=== PATIENT | female | born 1950 | race Caucasian/White ===

== ENCOUNTER 2017-06-23 09:22 | Outpatient (CLI) | payer BC ==
--- NOTE | 2017-06-23 11:07 | RAD ---
TWO VIEWS LUMBAR SPINE: Date: 06-23-17 Comparison: 05-02-13 History: Low back pain. Prior lumbar spine surgery. FINDINGS: Pedicle screws are present at L4, L5, and S1 bilaterally with vertically oriented interlocking rods. Disc device noted at L4-5 and L5-S1. No significant anterolisthesis or retrolisthesis. Bilateral la minectomy changes are noted at the post-operative site. There is atherosclerotic calcification of th e abdominal aorta. There is lower lumbar spine facet hypertrophy. IMPRESSION: Post-operative changes as above. No acute osseous abnormality. POS: [facility]
== END 2017-06-23 09:23 | disposition home or self-care (01) ==
LOC: TBSIIMAG 09:22
PROVIDERS: ATTEND Neurological Surgery
DX: M54.16 Radiculopathy, lumbar region (principal); Z98.890 Other specified postprocedural states
CPT/HCPCS: 72100

== ENCOUNTER 2017-08-01 12:19 | Observation (INO) | payer BC, MEDICARE ==
[2017-08-01 13:35] LABS: #Eosinphils 0.1 thou/uL (0.0-0.7); #Lymphocytes 0.5 thou/uL (1.20-3.40); #Monocytes 0.6 thou/uL (0.11-0.59); #Neutrophils 12.3 thou/uL (1.40-6.50); %Basophils 0.2 % (0.0-1.0); %Eosinophils 0.4 % (0.0-10.0); %Lymphocytes 3.9 % (21.0-51.0); %Monocytes 4.5 % (0.0-10.0); Hematocrit 43.5 % (36.0-47.0); Mean Platelet Volume 6.3 fL (7.4-10.4); Red Blood Cell (RBC) Count 4.69 mill/uL (4.20-5.40); White Blood Cell (WBC) Count 13.5 thou/uL (4.8-10.8)
[2017-08-01 13:44] LABS: Bilirubin Small (Negative); Blood, Urine Negative (Negative); Glucose, Urine (Dipstick) Negative (Negative); Ketone, Urine Negative (Negative); Nitrite Negative (Negative); Protein, Urine (Dipstick) 100 mg/dL (Neg-Trace); Urobilinogen 0.2 mg/dL (0.2-1.0)
[2017-08-01 13:45] LABS: Bacteria/HPF None Seen HPF (None Seen); Hyaline Casts/LPF 4-6 HYALINE CAST LPF (0-3 Hyaline)
[2017-08-01 13:58] LABS: Lactic Acid - Sepsis 1.7 mmol/L (0.5-2.2)
[2017-08-01 14:02] LABS: ALT (SGPT) 12 U/L (8-55); AST (SGOT) 13 U/L (5-34); Alkaline Phosphatase 148 U/L (40-150); Anion Gap 12 mmol/L (10-20); BUN (Urea Nitrogen) 23 mg/dL (9.8-20.1); Bilirubin, Total 0.8 mg/dL (0.2-1.2); Calc. Creatinine Clearance 0 mL/min (70-130); Calcium 9.1 mg/dL (7.8-10.44); Carbon Dioxide 20 mmol/L (23-31); Chloride 113 mmol/L (98-107); Estimated GFR-MDRD 45; Globulin 3.1 g/dL (2.4-3.5); Lipase 20 U/L (8-78); Protein, Total 7.1 g/dL (6.0-8.3)
[2017-08-01 14:04] LABS: Troponin I Less than 0.010 ng/mL (< 0.028)
[2017-08-01] MEDS ORDERED: Ondansetron HCl/PF 4 MG/2 ML Vial ONE (14:14)
[2017-08-01] MEDS ORDERED: Ondansetron ODT 4 MG TAB PO PRN (15:47)
[2017-08-01] MEDS ORDERED: Zolpidem Tartrate 5 MG TAB PO PRN (15:47)
[2017-08-01] MEDS ORDERED: Eucerin (Mineral Oil/Petrolatum,White) 30 gm Jar TOP PRN (15:47)
[2017-08-01] MEDS ORDERED: Ondansetron HCl/PF 4 MG/2 ML Vial IVP PRN (15:47)
[2017-08-01] MEDS ORDERED: HYDROcodone/Acetaminophen 5/325 mg Tablet PO PRN (15:47)
[2017-08-01] MEDS ORDERED: Mag-Al 1200 mg/1200 mg/30 ML UDCUP PO PRN (15:47)
[2017-08-01] MEDS ORDERED: Loperamide HCl 2 MG CAP PO PRN (15:47)
[2017-08-01] MEDS ORDERED: Loratadine 10 MG TAB PO PRN (15:47)
[2017-08-01] MEDS ORDERED: hydrALAZINE 20 MG/ML VIAL SLOW IVP PRN (15:47)
[2017-08-01] MEDS ORDERED: Artificial Tears 18 DROP/0.9 ML EA EYE PRN (15:47)
[2017-08-01] MEDS ORDERED: Sodium Chloride 0.65% Nasal 44 ML BOT EA NARE PRN (15:47)
[2017-08-01] MEDS ORDERED: Diabetic Tussin 200 MG/10 ML UDCUP PO PRN (15:47)
[2017-08-01] MEDS ORDERED: Chloraseptic Spray 180 ml Bottle PO PRN (15:47)
[2017-08-01] MEDS ORDERED: metroNIDAZOLE 500 MG/100 ML BAG ONE (15:53)
--- NOTE | 2017-08-01 16:17 | HP ---
PRIMARY CARE PHYSICIAN: Magi Denton M.D. REASON FOR ADMISSION: Gastroenteritis, dehydration and near syncope. HISTORY OF PRESENT ILLNESS: A 67-year-old female with a history of hypertension and dyslipidemia, wh o came to the emergency room with complaint of nausea, vomiting, and diarrhea. The patient reports t hat this morning around 5:00 a.m., she started having nausea, vomiting, and diarrhea. So far, she irby d 8 times diarrhea and 3 times of vomiting at home. Each time, the patient was having liquidy bowel movement without any pus or blood associated with nausea and three times vomiting containing of food particle. The patient was also having crampy abdominal pain. She was feeling cold, dizzy, and weak. The patient was in bathroom around 10 a.m. At that time, the patient felt lightheaded and about to pass out, but she slowly with the support of a wall sat down on the floor because she was not able t o keep herself up. She did not have any chest pain, palpitation or shortness of breath. Her near sy ncopal episode was witnessed by a pill machine operator. The patient was feeling very weak, dizzy associated wit h nausea, vomiting, and diarrhea, and that is why the patient was brought to the emergency room today . In the emergency room, the patient was relatively normotensive, but routine blood tests showed elevat ed BUN and creatinine. The patient clinically appeared dehydrated and weak. The patient reports that on she had family member came from [place]. They very sick wit h similar type of illness, but they got better over the weekend, but they stayed with the patient's h ome. The patient ate pizza, but other family member also ate similar pizza, nobody got sick. The pat ient only the family member got this type of illness. No other has similar type of problem. The patient denies any other sick exposures. She denies any travel. She denies any chest pain or pa lpitation. She denies any urinary tract infection symptoms. ALLERGIES: ADHESIVE TAPE, CHLORHEXIDINE, otherwise no known drug allergies. CURRENT MEDICATIONS: Benazepril 20 mg twice daily, vitamin D3 1000 units p.o. daily, pravastatin 40 mg p.o. daily, folic acid 1 mg p.o. daily, Vagifem vaginal application twice weekly, Restasis ophthal brody drops as needed, Tylenol No. 3 one or two tablets q.6 hourly p.r.n. REVIEW OF SYSTEMS: The following complete review of systems was negative, unless otherwise mentioned in the HPI or below: Constitutional: Weight loss or gain, ability to conduct usual activities. Sk in: Rash, itching. Eyes: Double vision, pain. ENT/Mouth: Nose bleeding, neck stiffness, pain, te nderness. Cardiovascular: Palpitations, dyspnea on exertion, orthopnea. Respiratory: Shortness of breath, wheezing, cough, hemoptysis, fever or night sweats. Gastrointestinal: Poor appetite, abdom inal pain, heartburn, nausea, vomiting, constipation, or diarrhea. Genitourinary: Urgency, frequenc y, dysuria, nocturia. Musculoskeletal: Pain, swelling. Neurologic/Psychiatric: Anxiety, depression . Allergy/Immunologic: Skin rash, bleeding tendency. Please see my HPI for pertinent positives and negatives. All other review of systems reviewed and negative except as mentioned in the HPI. PAST MEDICAL HISTORY: Hypertension, dyslipidemia, rheumatoid arthritis, chronic kidney disease stage 2. PAST SURGICAL HISTORY: Hysterectomy, tonsillectomy, lumbar L4-L5 fusion. PAST PSYCHIATRIC HISTORY: Reviewed and negative. SOCIAL HISTORY: The patient is . Her is present at bedside. She drinks alcohol soci ally and occasionally. She denies any smoking. She denies any other illicit drug abuse. FAMILY HISTORY: No strong family history of premature coronary artery disease, stroke or cancer. EMERGENCY ROOM COURSE: The patient has received IV fluid, Flagyl, and Zofran 4 mg. PHYSICAL EXAMINATION: VITAL SIGNS: On arrival, blood pressure 122/92, pulse 75, respiratory rate 16, saturation 95% on sheila m air, temperature 97.5, weight 79.3 kilograms. GENERAL: The patient is currently alert, awake, appears weak and dehydrated. No obvious acute distr ess. HEENT: Normocephalic, atraumatic. Eyes: Pupils round, reactive to light. Extraocular muscles inta ct. ENT: Oropharynx within normal limits. Dry appearing mucous membranes. No oral lesions. No pharyng eal erythema, no exudate. NECK: Supple. Range of motion is normal. No meningeal signs of irritation, no JVD, no thyromegaly, no carotid bruit. LUNGS: Clear to auscultation without any rhonchi or rales. CARDIAC: S1, S2 regular without any murmur. ABDOMEN: The patient does have vague abdominal discomfort, but no peritoneal sign, no guarding, no r igidity, no rebound, no organomegaly, no peritoneal sign. Bowel sounds present. No distention. EXTREMITIES: Upper extremity passive movement of all joints is normal. Lower extremity, no edema. Good peripheral pulsation. SKIN: No skin rash. HEMATOLOGICAL: No lymphadenopathy. PSYCHIATRIC: Normal affect. SIGNIFICANT LABS: EKG based on my review reveals normal sinus rhythm within normal limits. CBC: WB C 13.5, hemoglobin 13.8, platelet 344, lactic acid 1.7. Urinalysis: Protein plus, wbc 7-10. Cardia c enzymes: CK-MB 1.5, troponin I less than 0.010. Lipase 20. BMP: Sodium 141, potassium 4.1, chl oride 113, carbon dioxide 20, anion gap 12, BUN 23, creatinine 1.20, glucose 112, calcium 9.1. LFT: Protein 7.1, albumin 4.0, alkaline phosphatase 148, AST 13, ALT 12. ASSESSMENT AND PLAN: IMPRESSION: 1. Acute gastroenteritis, presumed infectious. At this point, the patient has several liquidy bowel movements and vomiting. The patient is clinically dehydrated. The patient had sick exposure at counts include [facility] beds at the [facility], most likely viral gastroenteritis, but we will send stool for infection workup including ova and p arasite, Campylobacter antigen, and Clostridium difficile. We will also empirically start Levaquin 5 00 mg IV daily and Flagyl 500 mg intravenously q.8 hourly. We will control her pain with Benadryl p.r .n. basis. We will hydrate her with intravenous fluid and will repeat basic metabolic panel tomorrow . 2. Normal anion gap metabolic acidosis likely due to diarrhea. The patient will be given intravenou s fluid and will repeat basic metabolic panel tomorrow. 3. Dehydration. The patient is clinically dehydrated because of nausea, vomiting, and diarrhea. Th e patient will be given intravenous fluid and we will repeat basic metabolic panel tomorrow. 4. History of hypertension. We will continue the patient's blood pressure medication, benazepril if blood pressure permits, but currently blood pressure is running on lower side, so we will hold on th at blood pressure medication. 5. Dyslipidemia. We will continue pravastatin 40 mg p.o. at bedtime. 6. Vitamin D deficiency. We will continue vitamin D3 1000 units p.o. daily, folic acid 1 mg p.o. da kendell. 7. Rheumatoid arthritis. We will continue pain control with [place] or Tylenol No. 3 p.r.n. basis. 8. Near syncope, likely due to volume depletion from orthostatic hypotension. We will monitor bloo d pressure. 9. Deep venous thrombosis prophylaxis not needed because we are expecting discharge in 24 hours. 10. Gastrointestinal prophylaxis, Pepcid 20 mg IV b.i.d. 11. Code status: The patient is FULL CODE. The patient's is surrogate decision maker. Disposition plan based on clinical course, likely within 24 hours. Plan of care discussed with the p atient and her at bedside in the emergency room.
[2017-08-01] MEDS: 1/2 NS w/KCL 20 mEq 1,000 ML IV SCH (20:38)
[2017-08-01] MEDS: Acetaminophen 325 MG TAB PO PRN (20:38)
[2017-08-01] MEDS: Famotidine/PF 20 mg/2ml Vial SLOW IVP SCH (20:38)
[2017-08-01] MEDS ORDERED: Atorvastatin Calcium 10 MG TAB PO SCH (21:00)
[2017-08-01] MEDS: metroNIDAZOLE 500 MG in Premix Bag 1 BAG IVPB SCH (22:43)
[2017-08-02 02:22] VITALS: BMI 28.3
[2017-08-02] MEDS: Acetaminophen 325 MG TAB PO PRN (03:34)
[2017-08-02 04:55] LABS: #Lymphocytes 0.8 thou/uL (1.20-3.40); #Monocytes 0.5 thou/uL (0.11-0.59); #Neutrophils 5.1 thou/uL (1.40-6.50); %Basophils 0.3 % (0.0-1.0); %Eosinophils 0.2 % (0.0-10.0); %Lymphocytes 12.2 % (21.0-51.0); %Monocytes 8.1 % (0.0-10.0); Hematocrit 37.5 % (36.0-47.0); Mean Platelet Volume 6.5 fL (7.4-10.4); Red Blood Cell (RBC) Count 4.06 mill/uL (4.20-5.40); White Blood Cell (WBC) Count 6.4 thou/uL (4.8-10.8)
[2017-08-02 05:03] LABS: Anion Gap 10 mmol/L (10-20); BUN (Urea Nitrogen) 19 mg/dL (9.8-20.1); Calc. Creatinine Clearance 57 mL/min (70-130); Calcium 8.8 mg/dL (7.8-10.44); Carbon Dioxide 21 mmol/L (23-31); Chloride 109 mmol/L (98-107); Estimated GFR-MDRD 46
[2017-08-02] MEDS: metroNIDAZOLE 500 MG in Premix Bag 1 BAG IVPB SCH (05:58)
[2017-08-02] MEDS: 1/2 NS w/KCL 20 mEq 1,000 ML IV SCH ×2 (05:58→09:44)
[2017-08-02] MEDS ORDERED: Saccharomyces boulardii 250 MG CAP PO SCH (09:00)
[2017-08-02] MEDS ORDERED: FLU VACC TS2017-18 (>65YR) 0.5 ML SYRINGE IM ONE (09:00)
[2017-08-02] MEDS ORDERED: Folic Acid 1 MG TAB PO SCH (09:00)
[2017-08-02] MEDS: Famotidine/PF 20 mg/2ml Vial SLOW IVP SCH (09:45)
[2017-08-02 12:13] VITALS: BP 145/68; TEMP 98
--- NOTE | 2017-08-03 00:51 | DIS ---
DATE OF ADMISSION: 08/01/2017 DATE OF DISCHARGE: 08/02/2017 DIAGNOSES AT THE TIME OF DISCHARGE: 1. Acute viral gastroenteritis, resolved. 2. Normal anion gap metabolic acidosis, likely due to diarrhea, resolved. 3. Dehydration, resolved. 4. Chronic renal insufficiency on the top of acute, secondary to dehydration, improved. 5. History of hypertension. 6. Dyslipidemia. 7. Vitamin D deficiency. 8. Rheumatoid arthritis. HOSPITAL COURSE: The patient is a 67-year-old female with history of hypertension, dyslipi demia, who came to the emergency room with complaints of nausea, vomiting, and diarrhea. Apparently two family members she had contacted with had viral gastroenteritis, which lasted approximately 1 day and that they are both fine at this point. The patient was at home when this happened. She started feeling lightheaded and she felt like she was about to pass out. She had multiple bowel movements a nd she vomited 3 times. She felt weak and dizzy. In the emergency room, she was normotensive. She appeared to be dehydrated and weak. She was evaluated and was found to have a white count of 13.5, h emoglobin 13.8, platelet count 344. Lactic acid was 1.7. Urinalysis showed 7-10 wbc's. CK-MB was 1 .5, troponin I less than 0.010, lipase was 20. Sodium 141, potassium 4.1, chloride 113, CO2 of 20, a nion gap was 12, BUN 23, creatinine 1.2, glucose 112, AST was 13, and ALT was 12. EKG showed normal sinus rhythm with normal findings. No abnormalities. The patient got admitted to the hospital, was placed on IV fluids, on IV Flagyl and Levaquin for presumptive infectious bacterial etiology. She wa s supposed to have a stool checked for ova, parasite, Campylobacter, and Clostridium, but she did not have more bowel movements after admission, so those tests were not done. The next day, she is feeli ng significantly better. She does not have any diarrhea, no nausea, no vomiting. Her white count is down to normal range of 6.4 and her creatinine is 1.18, which is probably her baseline because she h as mild chronic renal insufficiency. She is discharged to home. DISCHARGE PHYSICAL EXAMINATION: VITAL SIGNS: Blood pressure 145/68, pulse is 63, respirations 16, temperature is 98.0, and pulse oxi metry is 98% on room air. LUNGS: Clear. HEART: S1 and S2 normal. No S3, no S4, no murmur. ABDOMEN: Soft, nontender, bowel sounds are present, no organomegaly. EXTREMITIES: No clubbing, cyanosis, or edema. DIET: The patient is going to stay on a cardiac diet. ACTIVITY: As tolerated. She will follow up with primary care physician. The patient was seen and examined before she was dis charged. The discharge time is less than 30 minutes. MEDICATIONS AT THE TIME OF DISCHARGE: Restasis 1 drop to each eye twice a day, pravastatin 40 mg at bedtime, folic acid 1 mg daily, estradiol 10 mcg vaginal tablet twice a week, cholecalciferol 1 capsu le daily, benazepril 20 mg twice a day, and acetaminophen with codeine 300 mg/30 mg of codeine 1-2 ta blets every 6-8 hours p.r.n. as needed.
== END 2017-08-02 12:35 | disposition home or self-care (01) ==
LOC: ERS 12:19 → ERHOLD 15:11 → 2SW 20:13
PROVIDERS: ADMIT Internal Medicine; ATTEND Internal Medicine
DX: A04.8 Other specified bacterial intestinal infections (principal); E87.2 Acidosis; E86.0 Dehydration; E78.5 Hyperlipidemia, unspecified; E55.9 Vitamin D deficiency, unspecified; M06.9 Rheumatoid arthritis, unspecified; I12.9 Hypertensive chronic kidney disease with stage 1 through stage 4 chronic kidney disease, or unspecified chronic kidney disease; N18.2 Chronic kidney disease, stage 2 (mild); Z88.8 Allergy status to other drugs, medicaments and biological substances; Z91.048 Other nonmedicinal substance allergy status; Z79.899 Other long term (current) drug therapy; Z90.710 Acquired absence of both cervix and uterus; Z98.890 Other specified postprocedural states; Z98.1 Arthrodesis status
CPT/HCPCS: 36415; 80048; 80053; 81003; 81015; 82553; 83605; 83690; 84484; 85025; 93005; 96361; 96365; 96366; 96367; 96375; 96376; A4216; G0378; G8978-GP-CH; G8979-GP-CH; G8980-GP-CH; G8987-GO-CH; G8988-GO-CH; G8989-GO-CH; J1956; J2405; Q0162; S0028

== ENCOUNTER 2018-07-24 09:51 | Outpatient (CLI) | payer MEDICARE | END 2018-07-24 09:52 | disposition home or self-care (01) | LOC: BICMAMMO 09:51 | PROVIDERS: ATTEND Family Medicine | DX: Z12.31 Encounter for screening mammogram for malignant neoplasm of breast (principal) | CPT/HCPCS: 77063; 77067 ==

== ENCOUNTER 2018-08-16 08:23 | Emergency (ER) | payer MEDICARE ==
--- NOTE | 2018-08-16 09:14 | RAD ---
PORTABLE CHEST Date: 08-16-18 Provided Clinical History: Hypertension and right sided neck pain. FINDINGS: Comparison 07-14-16. Cardiac and mediastinal silhouettes are unchanged in appearance. Vascular calcification involves the aortic arch. No focal consolidation, pleural fluid, or pneumothorax apparent. IMPRESSION: No evidence for an acute cardiopulmonary process. POS: C
[2018-08-16 09:27] LABS: #Lymphocytes 1.5 thou/uL (1.20-3.40); #Monocytes 0.4 thou/uL (0.11-0.59); #Neutrophils 5.5 thou/uL (1.40-6.50); %Basophils 0.2 % (0.0-1.0); %Eosinophils 0.5 % (0.0-10.0); %Lymphocytes 20.4 % (21.0-51.0); %Monocytes 5.7 % (0.0-10.0); %Neutrophils 73.1 % (42.0-75.0); Hemoglobin 11.9 g/dL (12.0-16.0); Mean Corpuscular Hemoglobin 28.7 pg (27.0-31.0); Mean Corpuscular Volume 92.6 fL (78.0-98.0); Platelet Count 300 thou/uL (130-400); Red Blood Cell (RBC) Count 4.14 mill/uL (4.20-5.40); White Blood Cell (WBC) Count 7.6 thou/uL (4.8-10.8)
[2018-08-16 09:51] LABS: ALT (SGPT) 12 U/L (8-55); AST (SGOT) 16 U/L (5-34); Albumin 3.9 g/dL (3.4-4.8); Alkaline Phosphatase 155 U/L (40-150); Anion Gap 11 mmol/L (10-20); BUN (Urea Nitrogen) 20 mg/dL (9.8-20.1); Bilirubin, Total 0.6 mg/dL (0.2-1.2); Calc. Creatinine Clearance 0 mL/min (70-130); Calcium 9.6 mg/dL (7.8-10.44); Carbon Dioxide 27 mmol/L (23-31); Chloride 107 mmol/L (98-107); Estimated GFR-MDRD 52; Globulin 3.1 g/dL (2.4-3.5); Glucose 98 mg/dL (80-115); Sodium 141 mmol/L (136-145)
--- NOTE | 2018-08-16 10:33 | CT ---
CT OF HEAD NONCONTRAST: Indication: History of cerebral vascular accident with hypertension and headache. FINDINGS: There is no evidence of acute intracranial hemorrhage, mass effect, or midline shift. Mild chronic is chemic disease is present within the cerebral white matter. No acute fluid level of the imaged parana tatum sinuses. IMPRESSION: 1. No acute intracranial hemorrhage or mass effect. 2. Mild chronic ischemic disease. POS: [facility]
--- NOTE | 2018-08-16 22:06 | EKG ---
Test Reason : CODE GREEN Blood Pressure : / mmHG Vent. Rate : 051 BPM Atrial Rate : 051 BPM P-R Int : 196 ms QRS Dur : 082 ms QT Int : 476 ms P-R-T Axes : 039 015 048 degrees QTc Int : 438 ms Sinus bradycardia Otherwise normal ECG When compared with ECG of 22-FEB-1997 12:58, No significant change was found Confirmed by Luis VEGA ([id number]) on 08/16/2018 10:06:23 PM Referred By: KIMBERLEY Confirmed By:Luis VEGA
== END 2018-08-16 10:41 | disposition home or self-care (01) ==
LOC: ERS 08:23
DX: I10 Essential (primary) hypertension (principal); E78.00 Pure hypercholesterolemia, unspecified; Z86.73 Personal history of transient ischemic attack (TIA), and cerebral infarction without residual deficits; G47.30 Sleep apnea, unspecified; Z79.899 Other long term (current) drug therapy
CPT/HCPCS: 36415; 70450; 71045; 80053; 85025; 93005; 94760

== ENCOUNTER 2018-09-09 19:30 | Outpatient (CLI) | payer MEDICARE | END 2018-09-09 19:31 | disposition home or self-care (01) | LOC: SLEEPLAB 19:30 | PROVIDERS: ATTEND Family Medicine | DX: G47.33 Obstructive sleep apnea (adult) (pediatric) (principal); R06.83 Snoring; I10 Essential (primary) hypertension; Z86.73 Personal history of transient ischemic attack (TIA), and cerebral infarction without residual deficits | CPT/HCPCS: 95811 ==

== ENCOUNTER 2018-12-20 09:10 | Outpatient (CLI) | payer MEDICARE ==
--- NOTE | 2018-12-20 10:58 | MRI ---
EXAM: MRI Cervical Spine WO Con PROVIDED CLINICAL HISTORY: Cervical spondylosis COMPARISON: 02/29/2012 FINDINGS: Cervical alignment appears unchanged. Incomplete segmentation of the C4 and C5 segments is redemonstr ated. Vertebral body heights appear preserved. No focal concerning regional marrow signal abnormality is evident. The visualized posterior fossa, cervicomedullary junction and cervical spinal cord demon strate normal signal and morphology. At C2-3, there is no significant central canal or foraminal narrowing apparent. At C3-4, there is right-sided uncinate process hypertrophy and right-sided facet arthritis producing moderate foraminal narrowing. There is no significant central canal or left foraminal narrowing appar ent. At C4-5, there is no significant central canal or foraminal narrowing apparent. At C5-6, there is a broad-based disc osteophyte complex which effaces the ventral subarachnoid space without cord contact or deformity. There is uncinate process hypertrophy right greater than left prod ucing moderate-severe foraminal narrowing on the right. Mild left foraminal narrowing. At C6-7, there is a broad-based disc bulge without significant central canal or foraminal narrowing a pparent. At C7-T1, there is no significant central canal or foraminal narrowing apparent. IMPRESSION: Cervical degenerative changes as described above, appearing not significantly changed with respect to 02/29/2012.
== END 2018-12-20 09:11 | disposition home or self-care (01) ==
LOC: SCSMRI 09:10
PROVIDERS: ATTEND Specialist
DX: M47.22 Other spondylosis with radiculopathy, cervical region (principal)
CPT/HCPCS: 72141

== ENCOUNTER 2019-02-07 10:17 | Observation (INO) | payer MEDICARE ==
[2019-02-07 10:36] LABS: #Eosinphils 0.3 thou/uL (0.0-0.7); #Lymphocytes 2.7 thou/uL (1.20-3.40); #Monocytes 0.8 thou/uL (0.11-0.59); #Neutrophils 5.1 thou/uL (1.40-6.50); %Basophils 0.5 % (0.0-1.0); %Eosinophils 3.7 % (0.0-10.0); %Monocytes 9.4 % (0.0-10.0); %Neutrophils 56.5 % (42.0-75.0); Mean Corpuscular HGB CONC 32.4 g/dL (32.0-36.0); Mean Corpuscular Hemoglobin 30.1 pg (27.0-31.0); Mean Corpuscular Volume 92.8 fL (78.0-98.0); Mean Platelet Volume 6.4 fL (7.4-10.4); Platelet Count 327 thou/uL (130-400); RBC Distribution Width 12.4 % (11.5-14.5); Red Blood Cell (RBC) Count 4.32 mill/uL (4.20-5.40)
[2019-02-07 10:44] LABS: INR-International Normal Ratio 1.2; Prothrombin Time 15.6 SEC (12.0-14.7)
[2019-02-07 10:45] LABS: PTT 48.1 SEC (22.9-36.1)
--- NOTE | 2019-02-07 10:46 | CT ---
CT BRAIN WITHOUT CONTRAST: Date: 02/07/19 HISTORY: Level I stroke alert. Right-sided facial droop, bilateral hands/feet tingling. COMPARISON: 08/16/18. FINDINGS: No evidence of acute infarct, hemorrhage, midline shift, or abnormal extra-axial fluid collections ar e seen. The ventricular size is appropriate and the basilar cisterns are patent. The bony calvarium i s intact. There is mucosal disease in the paranasal sinuses. IMPRESSION: No CT evidence of acute intracranial process. Discussed over the telephone with ER physician, Dr. Garner, at 1033 hours. CODE CR. POS: [facility]
[2019-02-07 10:53] LABS: ALT (SGPT) 13 U/L (8-55); AST (SGOT) 14 U/L (5-34); Albumin 4.1 g/dL (3.4-4.8); Alkaline Phosphatase 187 U/L (40-150); Anion Gap 10 mmol/L (10-20); BUN (Urea Nitrogen) 27 mg/dL (9.8-20.1); Bilirubin, Total 1.3 mg/dL (0.2-1.2); Calc. Creatinine Clearance 0 mL/min (70-130); Calcium 10.1 mg/dL (7.8-10.44); Carbon Dioxide 29 mmol/L (23-31); Chloride 106 mmol/L (98-107); Estimated GFR-MDRD 41; Globulin 3.3 g/dL (2.4-3.5); Glucose 77 mg/dL (80-115); Potassium 3.5 mmol/L (3.5-5.1); Protein, Total 7.4 g/dL (6.0-8.3); Sodium 141 mmol/L (136-145)
[2019-02-07 11:13] LABS: CK (CPK) 55 U/L (29-168)
--- NOTE | 2019-02-07 11:27 | RAD ---
RADIOGRAPH CHEST 1 VIEW: DATE: 02/07/2019 HISTORY: 68-year-old female with facial droop and altered mental status. FINDINGS: The thoracic aorta is tortuous and ectatic. There is no evidence of airspace density, pulmonary edema , or pneumothorax. The lateral costophrenic angles are not effaced. No cardiomegaly. IMPRESSION: 1) No acute pulmonary findings. 2) ectasia of thoracic aorta.
[2019-02-07] MEDS ORDERED: Aspirin Chewable 81 MG TAB ONE (11:32)
[2019-02-07] MEDS ORDERED: Acetaminophen 325 MG TAB PO PRN (12:05)
[2019-02-07] MEDS ORDERED: Ondansetron ODT 4 MG TAB PO PRN (12:05)
--- NOTE | 2019-02-07 13:03 | HP ---
PRIMARY CARE PHYSICIAN: Norma King MD Referred to [facility] by [facility]. HISTORY OF PRESENT ILLNESS: The patient noted a left facial droop this morning. Last year, she had a CVA that started with a left facial droop and weakness in her left upper extremity. She was seen in [place], was told she had a small CVA. She has no other weakness in arms or legs. No trouble walking. No double vision or swallowing defects. She does note some tingling in all extremities. PAST MEDICAL HISTORY: Atrial fibrillation, hypertension, dyslipidemia, osteoarthritis, cerebrovascular accident. CURRENT MEDICATIONS: Chlorthalidone 25 mg a day, Lipitor 80 mg a day, Lyrica 50 mg twice a day, Pradaxa 150 mg twice a day, losartan 50 mg twice a day. She is also on Tessalon Perles and doxycycline 100 mg twice a day for 10 days for a sinus infection. ALLERGIES: CHLORHEXIDINE. PAST SURGICAL HISTORY: Tonsillectomy, hysterectomy, right rotator cuff surgery, left L4 through S1 spinal fusion. FAMILY HISTORY: Father with coronary artery disease and CVA, . She is . Full code status. Daughter, Shanti Cuevas at bedside as we discussed code status. Does not smoke. Drinks very occasional alcohol. REVIEW OF SYSTEMS: GENERAL: No headaches, dizziness, or fainting. EYES: No double vision, blurred vision, or flashing lights. EARS, NOSE, AND THROAT: No ear pain or drainage. No nasal bleeding. No trouble swallowing. CARDIAC: No chest pain, orthopnea, or paroxysmal nocturnal dyspnea. RESPIRATION: No cough, wheezing, or asthma. GASTROINTESTINAL: No nausea, vomiting, diarrhea, or constipation. GENITOURINARY: No hematuria or dysuria. MUSCULOSKELETAL: No pain or swelling in her arms or legs. NEUROLOGICAL: Previous CVA resolved, now with left facial weakness. PSYCHIATRIC: No anxiety or depression. SKIN: Easy bruising, on Pradaxa. No rash. HEME/LYMPH: No tender or swollen lymph nodes under arms, in her groin, or neck. PHYSICAL EXAMINATION: GENERAL: She is alert and pleasant woman, usually conversational, in no distress. HEENT: Examination of her head, eyes, ears, nose, and throat; pupils are equal, round, and reactive to light. Extraocular movements are intact. Sclerae are white. Tympanic membranes clear. Nose is clear. Oral mucous membranes are wet. Dental hygiene is good. NECK: Supple without jugular venous distention, adenopathy, thyromegaly, or bruits. CHEST: Clear to auscultation and percussion. HEART: Regular rate and rhythm. First and second heart sounds are clear. No murmurs or gallops were appreciated. ABDOMEN: Soft. Bowel sounds are normal. There is no hepatosplenomegaly. No mass. No rebound. EXTREMITIES: Reveal no cyanosis, clubbing, or edema. SKIN: Warm and dry with some mild ecchymoses on her forearms. PULSES: Carotid, radial, femoral, and dorsalis pedis pulses intact. HEME/LYMPH: No tender or swollen lymph nodes in axilla, inguinal, or cervical area. NEUROLOGICAL: Cranial nerves 2 through 12 appeared to be intact. There is a questionable slight effacing of the left nasolabial fold, but lips appeared to move normally. There is no weakness around the eyes. The smile was not asymmetric. Deep tendon reflexes are symmetric. Both toes downgoing. [id number] normal. Strength normal. DIAGNOSTIC DATA: EKG reveals atrial fibrillation with a controlled ventricular response, reviewed by me. Brain CT reveals no acute intracranial finding. There is no evidence I can see of an old stroke that I can see conclusively. Chest x-ray; no cardiomegaly, CHF, or infiltrate. CBC is normal. INR is 1.2, APTT 48.1. Creatinine 1.29, BUN 27. Lytes balanced. Alkaline phosphatase 187, bilirubin 1.3. PLAN: Continue home medicines. Aspirin has been given. MRI of the brain. Further discussion after MRI obtained. Job ID: [id number]
[2019-02-07 13:31] VITALS: BMI 30.4
--- NOTE | 2019-02-07 14:03 | MRI ---
MRI BRAIN WITHOUT CONTRAST: HISTORY: Right-sided facial droop starting this morning that appears to be resolved. CVA COMPARISON: None CORRELATION: CT scan from 02/07/2019. FINDINGS: No restricted diffusion is seen. The ventricular size is appropriate and the basilar cisterns are pat ent. No evidence of acute infarct, hemorrhage, midline shift or abnormal extra-axial fluid collections is seen. There is mucosal disease in the paranasal sinuses. IMPRESSION: No evidence of acute intracranial process.
[2019-02-07 16:04] VITALS: BP 132/63; TEMP 97.3
--- NOTE | 2019-02-07 16:20 | PDOC.EVN ---
Event Note - Event Note Event Note: MRI neg, neuro rec carotid US
--- NOTE | 2019-02-07 17:00 | ULT ---
BILATERAL CAROTID DUPLEX ULTRASOUND: HISTORY: History of CVA TECHNIQUE: Grayscale, color-flow and spectral Doppler ultrasound imaging of the extracranial carotid artery syst ems was performed bilaterally. FINDINGS: Mild plaque formation. The peak systolic velocity in the right ICA measures 99 cm/s. The peak systolic velocity in the left ICA measures 85 cm/s. Vertebral flow: antegrade, bilaterally. IMPRESSION: No hemodynamically significant stenosis of Both ICAs.
--- NOTE | 2019-02-07 17:44 | DIS ---
DATE OF ADMISSION: 02/07/2019 DATE OF DISCHARGE: 02/07/2019 PRIMARY CARE PHYSICIAN: Norma King MD DISPOSITION: Discharged home. FINAL DIAGNOSES: Hypertension, atrial fibrillation currently in regular sinus rhythm, chronic anticoagulation, and chronic kidney disease stage 3. DISCHARGE MEDICINES: Same as admitting medicines; 1. Pradaxa 150 b.i.d. 2. Ubiquinol 100 mg a day. 3. Lyrica 50 mg twice a day. 4. Chlorthalidone 25 mg a day. 5. Atorvastatin 80 mg at bedtime. 6. Losartan 50 mg twice a day. 7. She has currently been on Tessalon Perles and doxycycline for recent sinus infection. ALLERGIES: CHLORHEXIDINE. DIET: As tolerated. PENDING AT TIME OF DISCHARGE: Nothing. CODE STATUS: Full. 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 The patient had only very minimal effacement of the left nasolabial fold. She had good motion of her lips, good motion of her eyelids. Neurological exam otherwise was completely unremarkable. Brain CT was unremarkable as was her CBC, the only remarkable thing about her chemistries was BUN 27 and creatinine 1.29, consistent with chronic kidney disease 3. Her APTT was 48.1 and INR was 1.2. MRI was done, which showed no acute lesions. Carotid ultrasound was done after recommendation from Neurology, and it is completely normal. I have discussed this with her, she is being discharged to follow up. She says she has an appointment early February with Dr. King. Would recommend her repeat basic metabolic profile to look at her BUN and creatinine at that time. Her neurological exam as I said was unremarkable except for a very, very slight effacement of the left nasolabial fold with good smile motion and good eyelid function, etc. She had good strength in her limbs. Deep tendon reflexes were normal. [id number] was normal. Toes are downgoing. Job ID: [id number]
[2019-02-07] MEDS ORDERED: DOXYCYCLINE HYCLATE 100 MG PO SCH (21:00)
[2019-02-07] MEDS ORDERED: Dabigatran 150 mg Capsule PO SCH (21:00)
[2019-02-07] MEDS ORDERED: Pregabalin 50 MG CAP PO SCH (21:00)
[2019-02-07] MEDS ORDERED: Losartan 25 MG TAB PO SCH (21:00)
[2019-02-07] MEDS ORDERED: Non-Formulary Item 1 EACH (Atorvastatin Calcium [Lipitor] 80 MG) PO SCH (21:00)
--- NOTE | 2019-02-08 07:35 | HP ---
CORRECTION: Under diagnostic data, the EKG was dictated as atrial fibrillation. In fact, the patient was in regular sinus rhythm. Job ID: [id number]
[2019-02-08] MEDS ORDERED: B12 PO SCH (09:00)
[2019-02-08] MEDS ORDERED: Aspirin 325 mg Enteric Coated Tablet PO SCH (09:00)
[2019-02-08] MEDS ORDERED: B2 PO SCH (09:00)
[2019-02-08] MEDS ORDERED: B6 PO SCH (09:00)
[2019-02-08] MEDS ORDERED: UBIQUINOL 100 MG PO SCH (09:00)
[2019-02-08] MEDS ORDERED: VIT D3 PO SCH (09:00)
[2019-02-08] MEDS ORDERED: Chlorthalidone 25 MG TAB PO SCH (09:00)
[2019-02-08] MEDS ORDERED: FOLIC ACID PO SCH (09:00)
== END 2019-02-07 17:43 | disposition home or self-care (01) ==
LOC: ERS 10:17 → 2SE 12:57
PROVIDERS: ADMIT Internal Medicine; ATTEND Internal Medicine
DX: G51.0 Bell's palsy (principal); E78.5 Hyperlipidemia, unspecified; J32.9 Chronic sinusitis, unspecified; I77.810 Thoracic aortic ectasia; I48.91 Unspecified atrial fibrillation; I12.9 Hypertensive chronic kidney disease with stage 1 through stage 4 chronic kidney disease, or unspecified chronic kidney disease; N18.3 Chronic kidney disease, stage 3 (moderate); Z86.73 Personal history of transient ischemic attack (TIA), and cerebral infarction without residual deficits; Z79.01 Long term (current) use of anticoagulants; Z79.2 Long term (current) use of antibiotics; Z79.899 Other long term (current) drug therapy; Z88.8 Allergy status to other drugs, medicaments and biological substances; Z91.048 Other nonmedicinal substance allergy status; Z98.1 Arthrodesis status
CPT/HCPCS: 70450; 70551; 71045; 80053; 82550; 82962; 84484; 85025; 85610; 85730; 93005; 93880; 97139; 99285; G0378 ×2; 36416

== ENCOUNTER 2019-05-18 06:09 | Observation (INO) | payer MEDICARE ==
[2019-05-18 06:29] LABS: #Basophils 0.1 thou/uL (0.0-0.2); #Eosinphils 0.2 thou/uL (0.0-0.7); #Lymphocytes 2.3 thou/uL (1.20-3.40); #Monocytes 0.9 thou/uL (0.11-0.59); #Neutrophils 5.8 thou/uL (1.40-6.50); %Basophils 0.6 % (0.0-1.0); %Eosinophils 2.6 % (0.0-10.0); %Lymphocytes 25.2 % (21.0-51.0); %Monocytes 9.2 % (0.0-10.0); %Neutrophils 62.4 % (42.0-75.0); Hemoglobin 12.8 g/dL (12.0-16.0); Mean Corpuscular HGB CONC 32.7 g/dL (32.0-36.0); Mean Corpuscular Hemoglobin 29.7 pg (27.0-31.0); Mean Corpuscular Volume 90.8 fL (78.0-98.0); Mean Platelet Volume 6.9 fL (7.4-10.4); Platelet Count 237 thou/uL (130-400); RBC Distribution Width 12.7 % (11.5-14.5); Red Blood Cell (RBC) Count 4.32 mill/uL (4.20-5.40); White Blood Cell (WBC) Count 9.2 thou/uL (4.8-10.8)
[2019-05-18] MEDS ORDERED: Aspirin Chewable 81 MG TAB ONE (06:44)
[2019-05-18] MEDS ORDERED: Nitroglycerin 2% Ointment 1 INCH/1 GM Packet ONE (06:44)
[2019-05-18 06:55] LABS: Anion Gap 11 mmol/L (10-20); BUN (Urea Nitrogen) 19 mg/dL (9.8-20.1); Calc. Creatinine Clearance 0 mL/min (70-130); Carbon Dioxide 27 mmol/L (23-31); Chloride 104 mmol/L (98-107); Estimated GFR-MDRD 47; Potassium 4.1 mmol/L (3.5-5.1); Sodium 138 mmol/L (136-145)
[2019-05-18 06:56] LABS: ALT (SGPT) 11 U/L (8-55); AST (SGOT) 17 U/L (5-34); Albumin 3.8 g/dL (3.4-4.8); Alkaline Phosphatase 166 U/L (40-150); Bilirubin, Total 1.4 mg/dL (0.2-1.2); CK (CPK) 28 U/L (29-168); Calcium 9.3 mg/dL (7.8-10.44); Globulin 2.8 g/dL (2.4-3.5); Glucose 98 mg/dL (80-115); Protein, Total 6.6 g/dL (6.0-8.3)
[2019-05-18] MEDS ORDERED: Morphine 4 MG/ML VIAL ONE (07:15)
[2019-05-18] MEDS ORDERED: Ondansetron PF 4 MG/2 ML Vial ONE (07:16)
--- NOTE | 2019-05-18 08:19 | CT ---
CTA CHEST WITH IV COTNRAST AND 3D POST PROCESSING CTA ABDOMEN WITH IV CONTRAST AND 3D POST PROCESSING: HISTORY: Chest pain, hypertension, atrial fibrillation. Concern for aortic dissection. FINDINGS: There are vascular calcifications without aneurysmal dilatation of the thoracoabdominal aorta. The a ortic lumen is well opacified without intimal flap to suggest dissection. There is good flow in the celiac axis, SAURABH, and renal arteries. The main pulmonary arteries demonstrate no filling defects to suggest central pulmonary embolism. No pleural or pericardial effusions are seen. No pneumothoraces, lobar consolidation, or lung masses /nodules are seen. There are dependent changes in the lung bases. No free air or free fluid is seen in the abdomen. No calcified gallstones are noted. There is scarr ing in the kidneys. A small hiatal hernia is present. There are postop changes in the lower lumbar spine. IMPRESSION: No CT evidence of aortic dissection. POS: [facility]
--- NOTE | 2019-05-18 08:20 | RAD ---
PORTABLE CHEST 1 VIEW: DATE: 05/18/2019. TIME: 6:22 a.m. HISTORY: Chest pain. FINDINGS: Comparison is made with the exam of 02/07/2019. The heart size is normal. The aorta is tortuous. The lungs are expanded without lobar consolidation , pneumothoraces, or pleural effusions. IMPRESSION: No acute process. POS: [facility]
[2019-05-18 10:13] LABS: Troponin I Less than 0.010 ng/mL (< 0.028)
[2019-05-18] MEDS ORDERED: Iopamidol 370 76% 100 ML VIAL ONE (10:23)
[2019-05-18] MEDS ORDERED: Nitroglycerin 0.4 MG TAB (25 Tab Bottle) PO PRN (10:40)
[2019-05-18] MEDS ORDERED: Ondansetron PF 4 MG/2 ML Vial IVP PRN (10:40)
[2019-05-18] MEDS ORDERED: Ondansetron ODT 4 MG TAB PO PRN (10:40)
[2019-05-18] MEDS ORDERED: Acetaminophen 325 MG TAB PO PRN (10:40)
[2019-05-18] MEDS ORDERED: Ketorolac Tromethamine 30 MG/ML VIAL IVP PRN (10:52)
[2019-05-18] MEDS ORDERED: Sodium Chloride 0.9% 500 ML IV SCH (11:30)
[2019-05-18] MEDS ORDERED: Ketorolac Tromethamine 30 MG/ML VIAL ONE (12:14)
[2019-05-18 12:47] LABS: Troponin I Less than 0.010 ng/mL (< 0.028)
[2019-05-18] MEDS ORDERED: Ketorolac Tromethamine 30 MG/ML VIAL IVP SCH (13:45)
[2019-05-18] MEDS ORDERED: Colchicine 0.6 MG TAB PO SCH ×2 (13:45→21:00)
[2019-05-18 15:24] VITALS: BMI 30.2
[2019-05-18] MEDS: Sodium Chloride 0.9% 1,000 ML IV SCH (16:20)
[2019-05-18] MEDS: Ketorolac Tromethamine 30 MG/ML VIAL IVP SCH (16:27)
--- NOTE | 2019-05-18 18:35 | HP ---
PRIMARY CARE PHYSICIAN: Norma King MD CHIEF COMPLAINT: Chest pain. HISTORY OF PRESENT ILLNESS: Ms. Mixon is a 68-year-old female with a past medical history of hypertension, atrial fibrillation, CVA in the past, who had presented to [facility] earlier this morning for chest pain that started yesterday. She states that she was seen at the [facility] yesterday and her workup was negative. She was later discharged home to follow up with her coding compliance auditor, Dr. Blackmon. She states that the pain had actually worsened over night and was worse with deep breathing and with activity. Therefore, she was seen here in this ED. Her serial troponins were found to be negative x2 thus far and her portable chest x-ray and CTA of the chest were also unremarkable. Her EKG is showing some mild ST elevation diffuse leads, she also reported just getting over a viral illness last week, where she had sinus pressure, congestion, cough, and sore throat. She also reports a history of rheumatoid arthritis, however, she is not taking any current medications for it. She states that she sees a permit agent, Dr. Yan in [place]. Currently, she denied any fever, chills, any headache, blurred vision, dizziness, any palpitations, shortness of breath, abdominal pain, nausea, vomiting, or any swelling on her upper and lower extremities. She states that the pain had improved after a dose of morphine, however, had not changed after nitroglycerin or aspirin. REVIEW OF SYSTEMS: All other systems reviewed and found to be negative unless mentioned in the HPI. PAST MEDICAL HISTORY: Hypertension, rheumatoid arthritis, osteoarthritis, atrial fibrillation, previous CVA with no deficits, and chronic kidney disease. PAST SURGICAL HISTORY: Hysterectomy, tonsillectomy, L4-L5 fusion, rotator cuff surgery on the right shoulder. PSYCHIATRIC HISTORY: None. SOCIAL HISTORY: The patient states that she drinks socially every once in a while, but denies any drug use or tobacco abuse. KNOWN ALLERGIES: Adhesive tape, chlorhexidine. CURRENT HOME MEDICATIONS: 1. Atorvastatin 80 mg p.o. daily. 2. Lyrica 50 mg oral twice daily. 3. Pradaxa 150 mg oral twice daily. 4. Losartan 50 mg oral twice daily. 5. Lexapro 10 mg oral daily. PHYSICAL EXAMINATION: VITAL SIGNS: Blood pressure 140/67, pulse 61, respirations 19, temperature 98.2, and O2 saturation 96% on room air. GENERAL: The patient is awake, alert, and oriented x3, currently lying comfortably in bed, in no acute distress. HEENT: Atraumatic, normocephalic. Pupils are round and reactive to light. Extraocular muscles intact. Moist mucous membranes noted. NECK: Soft and supple. Trachea midline. CARDIOVASCULAR: Positive S1 and S2. Regular rate and rhythm. No murmur auscultated. RESPIRATORY: Clear to auscultation bilaterally. No wheezes, rales, or rhonchi. ABDOMEN: Soft, nontender. Bowel sounds present. MUSCULOSKELETAL: Moves all extremities equally. Pedal and radial pulses 2+ bilaterally. No edema noted. NEUROLOGIC: Cranial nerves 2 through 12 grossly intact. No focal deficits noted. Speech intact and normal. Gait not assessed. SKIN: Warm, dry and intact. No rashes. No ulceration noted. PSYCHIATRIC: Good mood and affect. LABORATORY DATA: WBC 9.2, RBC 4.32, hemoglobin 12.8, hematocrit 39.3, and platelets 237. Sodium 138, potassium 4.1, anion gap 11, BUN 19, creatinine 1.14, estimated GFR 47, glucose 98. Troponin less than 0.010 x2. DIAGNOSTIC IMAGING: Portable chest x-ray showed no acute process. CTA of chest revealed no evidence of aortic dissection and no evidence of pulmonary embolism. ASSESSMENT AND PLAN: 1. Chest pain with diffuse ST elevation, likely secondary to pericarditis, she will be started on anti-inflammatories with IV Toradol as needed, along with oral prednisone at this time. We will also check an echocardiogram for further evaluation. Now, the patient reports having a negative cardiac workup back in August less than 1 year ago with no history of coronary artery disease. Serial troponins were found to be negative x2. However, Cardiology Service, Dr. Torres, will be consulted for further recommendations. 2. Hypertension, currently stable. Continue home regimen. 3. History of atrial fibrillation, currently in sinus rhythm on the monitor. She will be resumed on her home regimen. 4. Rheumatoid arthritis. As above, continue anti-inflammatories for pain. She will also follow up with her permit agent, Dr. Yan upon discharge. 5. Deep venous thrombosis and gastrointestinal prophylaxis. 6. Code status, full code. DISPOSITION: Pending further workup and clinical findings. Job ID: [id number]
[2019-05-18] MEDS: Pregabalin 50 MG CAP PO SCH (20:19)
[2019-05-18] MEDS: Colchicine 0.6 MG TAB PO SCH (20:26)
[2019-05-18] MEDS: Famotidine 20 MG TAB PO SCH (20:26)
[2019-05-18] MEDS: Atorvastatin Calcium 40 MG TAB PO SCH (20:26)
[2019-05-18] MEDS ORDERED: Losartan 25 MG TAB PO SCH (21:00)
[2019-05-18] MEDS ORDERED: Dabigatran 150 mg Capsule PO SCH (21:00)
--- NOTE | 2019-05-18 22:56 | CON ---
DATE OF CONSULTATION: 05/18/2019 CONSULTING PHYSICIAN: KRISTAN Hughes HISTORY OF PRESENT ILLNESS: The patient is a 68-year-old female, who presented to the ED with a sharp chest pain that radiated to her left shoulder and neck that was worse with deep breathing and lying flat. She had been seen the night previous for similar chest pain that was described as a pressure-like pain, had a negative workup at [facility], and sent home. She was given nitroglycerin in the ED today, which did not resolve her chest pain, but morphine seems to have improved it. She does have a history of paroxysmal atrial fibrillation with loop recorder placement in 2018 and negative stress test at that time. She denies shortness of breath, nausea, vomiting, or diaphoresis at the time of her chest pain. She also denies dyspnea on exertion and exertional angina. She is a patient of Dr. Blackmon and is due for followup. REVIEW OF SYSTEMS: 10-point review of systems performed and found to be negative other than as mentioned in the HPI. PAST MEDICAL HISTORY: 1. CKD 3. 2. Atrial fibrillation. 3. Hypertension. 4. Hyperlipidemia. 5. RA. 6. History of CVA x2. PAST SURGICAL HISTORY: Tonsillectomy, hysterectomy, rotator cuff surgery, back fusion. SOCIAL HISTORY: Denies tobacco use or drug use. Drinks 1 to 2 glasses of wine per month. MEDICATIONS: She is on: 1. Losartan 50 b.i.d. 2. Pradaxa 150 b.i.d. 3. Atorvastatin. Full medication list seen on H and P. FAMILY HISTORY: Her father had an AR at age 57, CVA at age 66, and her brother had an AR at age 40. PHYSICAL EXAMINATION: VITAL SIGNS: Temperature 97.9, pulse 95, respiratory rate 18, O2 saturations 94 %, blood pressure 97/58. GENERAL: The patient is alert and oriented, in no acute distress. Well appearing and lying on her left lateral side. HEAD AND NECK: No bruits on auscultation. No thyromegaly. Moist mucous membranes. CARDIOVASCULAR: Has an irregular rhythm. Normal rate. S1 and S2. Normal sounds. EXTREMITIES: Distal extremities with good pulses, 2+ throughout. LUNGS: Clear to auscultation bilaterally. ABDOMEN: Soft, nontender. EXTREMITIES: No cyanosis or edema. LABORATORY FINDINGS: She has creatinine of 1.14 and troponins that are less than 0.010 on 3 separate lab draws. Imaging has been performed. A chest x-ray that was negative and a CT dissection protocol, which was negative for dissection. EKG shows ST elevation in leads II, III, IV, V, and . ASSESSMENT: 1. Pericarditis. 2. Paroxysmal atrial fibrillation. 3. Hypertension. 4. Hyperlipidemia. PLAN: Start colchicine, give one dose now and Toradol IV. Continue observation for telemetry monitoring. Discontinue Pradaxa as we are giving multiple medications that could cause risk of bleeding, we will hold this for 2 to 3 doses. GIve bolus of IV fluids as last BP low. Continue monitoring and plan to restart home BP meds when able. Job ID: [id number] RICKY
--- NOTE | 2019-05-18 23:28 | CON ---
DATE OF CONSULTATION: 05/18/2019 REASON FOR CONSULTATION: Chest pain and EKG compatible with pericarditis. HISTORY OF PRESENT ILLNESS: Ms. Mixon is a 68-year-old woman. She went to the emergency room in [facility] yesterday with chest pain like a pressure feeling. Cardiac enzymes were negative and she was released home. When she went home, the patient's pain increased. It became intense as a pressure, but it was also severe pain. She came here to the emergency room with EKG looks like pericarditis. She has received one dose of Toradol, feeling better. PAST MEDICAL HISTORY: 1. She has a history of rheumatoid arthritis. She is not on any medication for that. 2. She has history of paroxysmal atrial fibrillation. 3. She had a stress test in [place] a year ago. No ischemia. She also has an implantable loop recorder. MEDICATIONS: At home, she takes: 1. Lyrica. 2. Pradaxa 150 mg twice a day. 3. Chlorthalidone. 4. Doxycycline. 5. Atorvastatin. 6. Losartan 50 mg twice a day. ALLERGIES: ADHESIVE TAPE. SHE SAID IBUPROFEN CAUSES RENAL INSUFFICIENCY AT ONE POINT, SHE AVOIDS THAT. REVIEW OF SYSTEMS: CONSTITUTIONAL: No significant weight gain or loss. VISION: No changes. HEARING: No changes. PULMONARY: No cough or wheezing. GASTROINTESTINAL: No nausea, vomiting, or diarrhea. SKIN: No rashes. NEUROLOGIC: No unilateral weakness or numbness. PSYCHIATRIC: No unusual depression or anxiety. PHYSICAL EXAMINATION: GENERAL: This is a pleasant 68-year-old woman, in no distress. VITAL SIGNS: Blood pressure 97/58, pulse 95, regular. HEENT: Eyes; sclerae nonicteric. Mouth, mucous membranes moist. NECK: Supple. No lymphadenopathy. LUNGS: Clear. No wheezing, rales, or rhonchi. CARDIAC: Normal S1, normal S2. There is no murmur, rub, or gallop. ABDOMEN: Soft, nontender. EXTREMITIES: Warm, dry. No clubbing or cyanosis. No edema. PERTINENT LABORATORY DATA: Creatinine 1.14, has been as high as 1.4 in the past, as low as 1.05. EKG shows concave up ST elevation in the inferior lateral leads. Cardiac enzymes were negative. ASSESSMENT: 1. Pericarditis. 2. History of renal insufficiency now with a creatinine of 1.14 and GFR is 47. 3. Paroxysmal atrial fibrillation. 4. Rheumatoid arthritis. 5. History of hypercholesterolemia. PLAN: 1. She has received one dose of Toradol. Continue Toradol. 2. Intravenous fluids. 3. Begin colchicine. 4. Hopefully home in 1 to 2 days if doing better. Job ID: [id number]
[2019-05-19] MEDS: Sodium Chloride 0.9% 1,000 ML IV SCH ×4 (00:09→16:42)
[2019-05-19] MEDS: Ketorolac Tromethamine 30 MG/ML VIAL IVP SCH ×2 (00:09→08:05)
[2019-05-19 05:26] LABS: #Eosinphils 0.2 thou/uL (0.0-0.7); #Lymphocytes 1.6 thou/uL (1.20-3.40); #Monocytes 0.8 thou/uL (0.11-0.59); #Neutrophils 4.2 thou/uL (1.40-6.50); %Basophils 0.1 % (0.0-1.0); %Eosinophils 2.4 % (0.0-10.0); %Neutrophils 62.5 % (42.0-75.0); Hemoglobin 10.3 g/dL (12.0-16.0); Mean Corpuscular Hemoglobin 30.3 pg (27.0-31.0); Mean Corpuscular Volume 91.7 fL (78.0-98.0); Mean Platelet Volume 6.9 fL (7.4-10.4); Platelet Count 193 thou/uL (130-400); RBC Distribution Width 12.6 % (11.5-14.5); White Blood Cell (WBC) Count 6.7 thou/uL (4.8-10.8)
[2019-05-19 05:46] LABS: Anion Gap 9 mmol/L (10-20); BUN (Urea Nitrogen) 19 mg/dL (9.8-20.1); Calc. Creatinine Clearance 59 mL/min (70-130); Calcium 8.3 mg/dL (7.8-10.44); Carbon Dioxide 25 mmol/L (23-31); Cardiac Risk 2.9 (Less than 4.5); Chloride 108 mmol/L (98-107); Cholesterol 106 mg/dl (< 200 Desired); Estimated GFR-MDRD 45; Glucose 100 mg/dL (80-115); HDL Cholesterol 36 mg/dL (>60 Neg Risk); LDL Cholesterol, Calculated 59 mg/dL; Potassium 3.9 mmol/L (3.5-5.1); Sodium 138 mmol/L (136-145); Triglycerides 54 mg/dL (Less than 150)
[2019-05-19] MEDS: Pregabalin 50 MG CAP PO SCH ×3 (08:00→20:34)
[2019-05-19] MEDS ORDERED: predniSONE 20 MG TAB PO SCH (08:00)
[2019-05-19] MEDS: Colchicine 0.6 MG TAB PO SCH ×2 (08:04→20:34)
[2019-05-19] MEDS: Famotidine 20 MG TAB PO SCH ×2 (08:04→20:35)
[2019-05-19] MEDS ORDERED: Prevnar 13-Val Conj/PF 0.5 ML SYRINGE IM ONE (09:00)
--- NOTE | 2019-05-19 13:49 | PDOC.HOSPP ---
- Subjective Encounter Date: 05/19/19 Encounter Time: 11:30 Subjective: pt up in bed feels better today - Objective Vital Signs & Weight: Vital Signs (12 hours) Temp Pulse Resp BP BP Pulse Ox 05/19/19 12:06 97.9 F 63 16 110/61 95 05/19/19 07:25 97.6 F 96 16 121/57 L 96 05/19/19 05:10 98.1 F 62 16 103/57 L 98 Weight Weight 187 lb I&O: 05/18/19 05/19/19 05/20/19 06:59 06:59 06:59 Intake Total 1740 Output Total 800 Balance 940 Result Diagrams: 05/19/19 05:03 05/19/19 05:03 Hospitalist ROS - Review of Systems Respiratory: denies: cough, dry, shortness of breath, hemoptysis, SOB with excertion, pleuritic pain, sputum, wheezing, other Cardiovascular: denies: chest pain, palpitations, orthopnea, paroxysmal noc. dyspnea, edema, light headedness, other Gastrointestinal: denies: nausea, vomitting, abdominal pain, diarrhea, constipation, melena, hematochezia, other - Medication Medications: Active Medications Generic Name Dose Route Start Last Admin Trade Name Freq PRN Reason Stop Dose Admin Atorvastatin Calcium 80 mg 05/18/19 21:00 05/18/19 20:26 Lipitor PO 80 mg HS BRITTNEY Administration Colchicine 0.6 mg 05/18/19 21:00 05/19/19 08:04 Colchicine PO 0.6 mg BID BRITTNEY Administration Famotidine 20 mg 05/18/19 21:00 05/19/19 08:04 Pepcid PO 20 mg BID BRITTNEY Administration Sodium Chloride 1,000 mls @ 100 mls/hr 05/18/19 11:30 05/19/19 08:02 Normal Saline 0.9% IV 1,000 mls .Q10H BRITTNEY Administration Ketorolac Tromethamine 30 mg 05/18/19 17:00 05/19/19 08:05 Toradol IVP 05/23/19 17:01 30 mg 0100,0900,1700 BRITTNEY Administration Pregabalin 50 mg 05/18/19 21:00 05/19/19 08:00 Lyrica PO 50 mg BID BRITTNEY Administration Sodium Chloride 10 ml 05/18/19 21:00 05/19/19 08:05 Flush - Normal Saline IVF 10 ml Q12HR BRITTNEY Administration - Exam Neck: negative: supple, symmetric, no JVD, no thyromegaly, no lymphadenopathy, no carotid bruit, JVD Heart: negative: RRR, no murmur, no gallops, no rubs, normal peripheral pulses, irregular, diminshed peripheral pulses, murmur present, II/IV, III/IV Respiratory: negative: CTAB, no wheezes, no rales, no ronchi, normal chest expansion, no tachypnea, normal percussion, rales, rhonchi, tachypneic, wheezes Hosp A/P (1) Acute pericarditis Code(s): I30.9 - ACUTE PERICARDITIS, UNSPECIFIED Status: Acute (2) Atrial fibrillation, currently in sinus rhythm Code(s): Z86.79 - PERSONAL HISTORY OF OTHER DISEASES OF THE CIRCULATORY SYSTEM Status: Acute (3) HTN (hypertension) Code(s): I10 - ESSENTIAL (PRIMARY) HYPERTENSION Status: Acute (4) Rheumatoid arthritis Code(s): M06.9 - RHEUMATOID ARTHRITIS, UNSPECIFIED Status: Acute - Plan pt on colchicine and on toradol and feels well. she has RA and has not been on plaquenil which she is going to start. she was afraid to start it due to side effects. pt's AC on hold. will discharge when ok with cardiology.
--- NOTE | 2019-05-19 15:20 | PRG ---
DATE OF SERVICE: 05/19/2019 SUBJECTIVE: Ms. Mixon feels dramatically better today. She has only minimal chest pain with a deep breath now. OBJECTIVE: VITAL SIGNS: Blood pressure 110/60, pulse 60. LUNGS: Clear. CARDIAC: Normal S1, normal S2. The patient did have some transient atrial fibrillation last night, is asymptomatic. ASSESSMENT: 1. Pericarditis, dramatically improved. 2. Renal insufficiency, slightly higher creatinine from 1.14 to 1.2 with some history of renal insufficiency in the past. Creatinine has gone as high as 1.4 in 2014. PLAN: 1. Continue intravenous fluid. 2. We will stop Toradol. 3. Continue colchicine. 4. Resume Pradaxa tonight. The patient does have history of stroke and has paroxysmal atrial fibrillation. 5. Hopefully, home tomorrow if the creatinine is stable. Job ID: [id number]
[2019-05-19] MEDS: Atorvastatin Calcium 40 MG TAB PO SCH (20:34)
[2019-05-19] MEDS: Dabigatran 150 mg Capsule PO SCH (20:36)
[2019-05-20] MEDS: Sodium Chloride 0.9% 1,000 ML IV SCH (01:21)
[2019-05-20 06:12] LABS: Anion Gap 11 mmol/L (10-20); BUN (Urea Nitrogen) 13 mg/dL (9.8-20.1); Calc. Creatinine Clearance 66 mL/min (70-130); Carbon Dioxide 22 mmol/L (23-31); Chloride 114 mmol/L (98-107); Estimated GFR-MDRD 51; Glucose 94 mg/dL (80-115); Potassium 3.7 mmol/L (3.5-5.1); Sodium 143 mmol/L (136-145)
[2019-05-20 07:55] VITALS: TEMP 97.9
[2019-05-20] MEDS: Pregabalin 50 MG CAP PO SCH (08:35)
[2019-05-20] MEDS: Famotidine 20 MG TAB PO SCH (08:36)
[2019-05-20] MEDS: Dabigatran 150 mg Capsule PO SCH (08:36)
[2019-05-20] MEDS: Colchicine 0.6 MG TAB PO SCH (08:36)
[2019-05-20 08:40] VITALS: BP 166/72
[2019-05-20] MEDS ORDERED: Colchicine 0.3 MG TAB PO SCH (09:00)
[2019-05-20] MEDS ORDERED: Potassium Chloride 20 MEQ TAB PO SCH (09:00)
[2019-05-20] MEDS ORDERED: Etodolac ER 400 mg Tablet PO SCH (10:00)
--- NOTE | 2019-05-20 10:00 | PRG ---
DATE OF SERVICE: 05/20/2019 PRIMARY FILLER SHAKER: Javier Blackmon MD SUBJECTIVE: Ms. Mixon's chest is doing dramatically better. However, she has developed rather severe diarrhea on the colchicine. She received 0.6 mg p.o. last night. OBJECTIVE: VITAL SIGNS: Her blood pressure is 160/70, pulse is 70. LUNGS: Clear. CARDIAC: Normal S1. Normal S2. ABDOMEN: Soft and nontender. ASSESSMENT: 1. Pericarditis, clinically improved. 2. Diarrhea secondary to colchicine. 3. Renal insufficiency, improved with fluid. Her creatinine is 1.2 yesterday, it is 1.07 today. 4. Hypokalemia, potassium 3.7. PLAN: 1. Replete potassium. 2. Okay to go home. We will not give her colchicine this morning, they go to 0.3 mg twice a day. 3. Since she cannot take a full dose of colchicine, we will prescribe Lodine XL 400 mg a day for 5 days. 4. She is to follow up with Dr. Blackmon within 1 to 2 weeks. Job ID: [id number]
[2019-05-20] MEDS ORDERED: Colchicine 0.6 MG TAB PO SCH (21:00)
--- NOTE | 2019-05-20 22:32 | DIS ---
DATE OF ADMISSION: 05/18/2019 DATE OF DISCHARGE: 05/20/2019 DISCHARGE DIAGNOSES: 1. Pericarditis. 2. Rheumatoid arthritis. 3. Atrial fibrillation, currently in sinus rhythm, on anticoagulation. 4. Hypertension. HOSPITAL COURSE: The patient is a 68-year-old female, who initially presented to the hospital with significant chest pain. She also had some mild ST elevation diffusely in her EKG. She is supposed to be on Plaquenil; however, has not started her Plaquenil given multiple side effects. She was seen by Cardiology and underwent initially treatments with Toradol and colchicine. However, on colchicine, she started to have diarrhea. Her dose was cut down to 0.3 mg b.i.d. She also was sent home with an anti-inflammatory for 5 days. HOME MEDICATIONS: Her home medications will be as of the followin. Colchicine 0.3 b.i.d. 2. Etodolac 400 mg q.24. 3. Pepcid 20 mg b.i.d. 4. Atorvastatin 80 mg at bedtime. 5. Pradaxa 150 b.i.d. 6. Cozaar 50 mg b.i.d. 7. Lexapro 10 mg daily. 8. Lyrica 50 mg b.i.d. PHYSICAL EXAMINATION: VITAL SIGNS: Temperature 97.9, pulse 69, respiratory rate 15, O2 saturation 95% on room air, blood pressure 163/74. GENERAL: She is awake, alert, and oriented x3, does not appear in any distress. CV: S1, S2 present. No murmurs, rubs, or gallops. ABDOMEN: Soft and nontender. Bowel sounds are present x2. Again, the patient has felt really well. When she left the hospital, she said her pain had improved. She did have some chest tightness on respiration; however, she overall stated felt really well. She will be discharged home. She will follow up with her Primary and Rheumatology and also with Cardiology. Job ID: [id number]
--- NOTE | 2019-05-26 13:51 | EKG ---
Test Reason : CP Blood Pressure : / mmHG Vent. Rate : 065 BPM Atrial Rate : 065 BPM P-R Int : 200 ms QRS Dur : 084 ms QT Int : 446 ms P-R-T Axes : 033 007 015 degrees QTc Int : 463 ms Normal sinus rhythm ST elevation, consider early repolarization, pericarditis, or injury Abnormal ECG #2 Confirmed by FRANCIS SANCHEZ DO ([id number]), dictionary editor ARACELI HARPER ([id number]) on 05/26/2019 1:51:21 PM Referred By: DR SANCHEZ Confirmed By:FRANCIS SANCHEZ DO
--- NOTE | 2019-05-26 13:51 | EKG ---
Test Reason : Blood Pressure : / mmHG Vent. Rate : 065 BPM Atrial Rate : 065 BPM P-R Int : 202 ms QRS Dur : 082 ms QT Int : 404 ms P-R-T Axes : 048 002 029 degrees QTc Int : 420 ms Normal sinus rhythm ST elevation, consider early repolarization Borderline ECG No ST elevation/AR Confirmed by FRANCIS SANCHEZ DO ([id number]), web editor ARACELI HARPER ([id number]) on 05/26/2019 1:51:13 PM Referred By: Confirmed By:FRANCIS SANCHEZ DO
== END 2019-05-20 10:53 | disposition home or self-care (01) ==
LOC: ERS 06:09 → ERHOLD 06:58 → 2SW 14:14
PROVIDERS: ADMIT Emergency Medicine; ATTEND Hospitalist
DX: I30.9 Acute pericarditis, unspecified (principal); M06.9 Rheumatoid arthritis, unspecified; I48.0 Paroxysmal atrial fibrillation; I12.9 Hypertensive chronic kidney disease with stage 1 through stage 4 chronic kidney disease, or unspecified chronic kidney disease; N18.3 Chronic kidney disease, stage 3 (moderate); M19.90 Unspecified osteoarthritis, unspecified site; E78.5 Hyperlipidemia, unspecified; E78.00 Pure hypercholesterolemia, unspecified; K52.1 Toxic gastroenteritis and colitis; T50.4X5A Adverse effect of drugs affecting uric acid metabolism, initial encounter; E87.6 Hypokalemia; Z86.73 Personal history of transient ischemic attack (TIA), and cerebral infarction without residual deficits; Z79.02 Long term (current) use of antithrombotics/antiplatelets; Z79.899 Other long term (current) drug therapy; Z88.8 Allergy status to other drugs, medicaments and biological substances; Z91.048 Other nonmedicinal substance allergy status
CPT/HCPCS: 71045; 80048 ×2; 80053; 80061; 82550; 84484 ×2; 85025 ×2; 93005; 93306; 94760; 96361 ×4; 96374; 96375 ×2; 96376; 97139 ×2; 99285; G0378 ×4; 36415; J1885; J2270; J2405; Q9967

== ENCOUNTER 2019-06-29 00:01 | Inpatient (IN) | payer MEDICARE ==
[2019-06-29 00:50] LABS: #Lymphocytes 1.2 thou/uL (1.20-3.40); #Monocytes 0.8 thou/uL (0.11-0.59); #Neutrophils 8.1 thou/uL (1.40-6.50); %Basophils 0.4 % (0.0-1.0); %Eosinophils 0.4 % (0.0-10.0); %Lymphocytes 11.6 % (21.0-51.0); %Monocytes 7.6 % (0.0-10.0); %Neutrophils 80.1 % (42.0-75.0); Hemoglobin 9.7 g/dL (12.0-16.0); Mean Corpuscular Volume 87.9 fL (78.0-98.0); Mean Platelet Volume 7.1 fL (7.4-10.4); Platelet Count 259 thou/uL (130-400); RBC Distribution Width 12.6 % (11.5-14.5); Red Blood Cell (RBC) Count 3.35 mill/uL (4.20-5.40); White Blood Cell (WBC) Count 10.1 thou/uL (4.8-10.8)
[2019-06-29 00:52] LABS: Bacteria/HPF None Seen HPF (None Seen); Bilirubin Negative (Negative); Blood, Urine 2+ (Negative); Clarity Clear (Clear); Glucose, Urine (Dipstick) Normal (Negative); Leukocyte Negative Leu/uL (Negative); Nitrite Negative (Negative); Protein, Urine (Dipstick) 200 mg/dL (Neg-Trace); RBC/HPF Greater than 50 HPF (0-3); Squamous Epithelial None Seen HPF (0-3); Urobilinogen Normal mg/dL (Less than 2)
[2019-06-29 01:12] LABS: ALT (SGPT) 11 U/L (8-55); AST (SGOT) 16 U/L (5-34); Albumin 3.4 g/dL (3.4-4.8); Alkaline Phosphatase 141 U/L (40-110); Anion Gap 12 mmol/L (10-20); BUN (Urea Nitrogen) 48 mg/dL (9.8-20.1); Calc. Creatinine Clearance 0 mL/min (70-130); Calcium 8.4 mg/dL (7.8-10.44); Carbon Dioxide 22 mmol/L (23-31); Chloride 102 mmol/L (98-107); Estimated GFR-MDRD 26; Glucose 108 mg/dL (80-115); Protein, Total 6.4 g/dL (6.0-8.3); Sodium 132 mmol/L (136-145)
[2019-06-29] MEDS ORDERED: Furosemide 20 MG/2 ML VIAL ONE (01:53)
[2019-06-29 04:06] LABS: Troponin I 0.024 ng/mL (< 0.028)
[2019-06-29 06:56] LABS: Troponin I 0.054 ng/mL (< 0.028)
--- NOTE | 2019-06-29 07:39 | RAD ---
Portable frontal chest radiograph: 06/29/2019 COMPARISON: 05/18/2019 HISTORY: Reduced kidney output, cough, left-sided pain FINDINGS: Increased linear interstitial density noted bilaterally, slightly worsened when compared to prior imaging. Loop recorder overlies midline mediastinum. There is atherosclerotic calcification of the aortic arch. Lungs are hyperinflated suggesting air trapping. No pneumothorax or pleural fluid . No lobar consolidation or alveolar edema. IMPRESSION: Interstitial prominence and pulmonary hyperinflation with no lobar consolidation or alveo lar edema. Interstitial prominence has worsened slightly since the prior examination. A mild degree of interstitial pulmonary edema is a possibility.
--- NOTE | 2019-06-29 09:37 | CON ---
DATE OF CONSULTATION: REASON FOR CONSULTATION: Shortness of breath and elevated BNP. HISTORY OF PRESENT ILLNESS: Ms. Mixon is a very pleasant 69-year-old woman who was seen and evaluated in the past. She recently was in the hospital for pericarditis. She was placed on indomethacin and her symptoms markedly improved. She states over the last several days, she has had increased shortness of breath. She did recently start Plaquenil and Lyrica for her rheumatoid arthritis. She denies chest pain or pressure. She has had lower extremity edema and has gained 13 pounds over the last one month. She was given Lasix in the ER with significant improvement. CURRENT MEDICATIONS: Include colchicine, Pradaxa, Restasis, losartan, atorvastatin, Lexapro, Medrol, etodolac, famotidine, aspirin, Lyrica, and Plaquenil. PAST MEDICAL HISTORY: Hypertension, hyperlipidemia, previous stroke, rheumatoid arthritis, obstructive sleep apnea, chronic kidney disease, previous PFO, paroxysmal atrial fibrillation, status post IR, spinal fusion, rotator cuff repair, hysterectomy, tonsillectomy. FAMILY HISTORY: Mother had Parkinson's. Father with previous NH. SOCIAL HISTORY: No current tobacco or alcohol use. Positive caffeine use. ALLERGIES: HYDROCHLOROTHIAZIDE AND LISINOPRIL. REVIEW OF SYSTEMS: A 10-point review of systems is reviewed as above, otherwise negative. PHYSICAL EXAMINATION: GENERAL: Patient is a pleasant female who is in no acute distress. The patient appears their stated age. VITAL SIGNS: Blood pressure 184/82, pulse 63, and temperature 97.8. NEUROLOGIC: The patient is alert and oriented x3 with no focal neurologic deficits. HEENT: Sclerae without icterus. Mouth has moist mucous membranes with normal pallor. NECK: No JVD. Carotid upstroke brisk. No bruits bilaterally. LUNGS: Mild rales noted bilaterally. Minimal crackles. BACK: No scoliosis or kyphosis. CARDIAC: Regular rate and rhythm with normal S1 and S2. No S3 or S4 noted. No significant rubs, murmurs, thrills, or gallops noted throughout the precordium. PMI is not displaced. There is no parasternal heave. ABDOMEN: Soft, nontender, nondistended. No peritoneal signs present. No hepatosplenomegaly. No abnormal striae. EXTREMITIES: 2+ femoral and 2+ dorsalis pedis pulses. No cyanosis, clubbing. 1+ pitting edema. SKIN: No gross abnormalities. PERTINENT LABORATORY DATA: Hemoglobin 9.7, hematocrit 29.5, platelet count 259. Sodium 132, CO2 22, creatinine 1.9, which is up from baseline of 1.2. BNP of 1245. EKG; normal sinus rhythm, normal EKG. IMPRESSION: 1. Shortness of breath. 2. Elevated BNP. 3. Rheumatoid arthritis. RECOMMENDATIONS: Ms. Mixon does have a previous history of paroxysmal atrial fibrillation and is currently on anticoagulation therapy. We will interrogate her IR. Her symptoms may be related to new onset cardiomyopathy. There is some evidence linking the use of Plaquenil both in the acute and chronic phase to cardiomyopathy. She has recently started this drug. At this point, we will likely need to discontinue the drug until further studies have been performed. Echo with Doppler has been ordered, but not performed. Continue with IV Lasix. Her symptoms have improved. Otherwise, we will continue to follow closely. Job ID: [id number]
[2019-06-29] MEDS ORDERED: Furosemide 20 MG/2 ML VIAL SLOW IVP SCH (10:15)
[2019-06-29] MEDS: Furosemide 20 MG/2 ML VIAL SLOW IVP SCH (14:31)
[2019-06-29 14:54] LABS: #Lymphocytes 1.1 thou/uL (1.20-3.40); #Monocytes 0.8 thou/uL (0.11-0.59); #Neutrophils 6.8 thou/uL (1.40-6.50); %Basophils 0.4 % (0.0-1.0); %Eosinophils 0.3 % (0.0-10.0); %Monocytes 9.5 % (0.0-10.0); %Neutrophils 76.9 % (42.0-75.0); Hemoglobin 9.6 g/dL (12.0-16.0); Mean Corpuscular Hemoglobin 29.7 pg (27.0-31.0); Mean Corpuscular Volume 87.3 fL (78.0-98.0); Mean Platelet Volume 6.7 fL (7.4-10.4); Platelet Count 236 thou/uL (130-400); RBC Distribution Width 12.7 % (11.5-14.5); Red Blood Cell (RBC) Count 3.24 mill/uL (4.20-5.40); White Blood Cell (WBC) Count 8.8 thou/uL (4.8-10.8)
[2019-06-29 15:14] LABS: ALT (SGPT) 7 U/L (8-55); AST (SGOT) 13 U/L (5-34); Albumin 3.4 g/dL (3.4-4.8); Alkaline Phosphatase 139 U/L (40-110); Anion Gap 12 mmol/L (10-20); BUN (Urea Nitrogen) 50 mg/dL (9.8-20.1); Bilirubin, Total 1.3 mg/dL (0.2-1.2); Calc. Creatinine Clearance 38 mL/min (70-130); Calcium 8.4 mg/dL (7.8-10.44); Carbon Dioxide 24 mmol/L (23-31); Chloride 103 mmol/L (98-107); Estimated GFR-MDRD 25; Globulin 2.8 g/dL (2.4-3.5); Glucose 110 mg/dL (80-115); Potassium 3.9 mmol/L (3.5-5.1); Protein, Total 6.2 g/dL (6.0-8.3); Sodium 135 mmol/L (136-145)
--- NOTE | 2019-06-29 15:15 | HP ---
PRIMARY CARE PHYSICIAN: Norma King MD CHIEF COMPLAINT: Shortness of breath and cough for the last 2 days. HISTORY OF PRESENT ILLNESS: Ms. Mixon is a 69-year-old female with a past medical history of hypertension, atrial fibrillation, and previous CVA in the past, who presented to the ED late last night due to worsening shortness of breath and cough over the last 2 days. She was in the hospital last month for pericarditis causing chest pain. 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 She was doing well since then up until a few days ago. She states she was started on Plaquenil about 2 weeks ago prior to the symptoms starting. Dr. Blackmon saw the patient and had questioned the Plaquenil causing her symptoms. Therefore, he had recommended her to stop this at this time, and an echocardiogram is pending. Her serial troponins were found to be negative x2. Her BNP was elevated at 1245.8 and her chest x-ray showed signs of fluid overload. She was treated with some IV Lasix and is now feeling quite better. She currently denies fever, chills, headache, blurred vision, dizziness, chest pain, palpitations, shortness of breath, abdominal pain, nausea, or vomiting. REVIEW OF SYSTEMS: All other systems reviewed and found to be negative unless mentioned in the HPI. PAST MEDICAL HISTORY: Hypertension, rheumatoid arthritis, osteoarthritis, atrial fibrillation, previous CVA with no deficits, and chronic kidney disease. PAST SURGICAL HISTORY: Hysterectomy, tonsillectomy, L4-L5 fusion, rotator cuff surgery on the right shoulder. PSYCHIATRIC HISTORY: None. SOCIAL HISTORY: The patient states that she drinks alcohol socially, roughly once or twice a month, but denies any tobacco or illicit drug use. KNOWN ALLERGIES: Adhesive tape and chlorhexidine. CURRENT HOME MEDICATIONS: 1. Plaquenil 200 mg daily. 2. Atorvastatin 80 mg q.h.s. 3. Dabigatran 150 mg b.i.d. 4. Lexapro 10 mg daily. 5. Losartan 50 mg daily. 6. Pregabalin 50 mg b.i.d. PHYSICAL EXAMINATION: VITAL SIGNS: Blood pressure 184/82, pulse 63, respirations 18, temperature 97.8, O2 saturation 92% on room air. GENERAL: The patient is awake, alert, and oriented x3. She is currently lying comfortably in bed and in no acute distress. Her family is at bedside. HEENT: Atraumatic, normocephalic. Pupils are round and reactive to light. Extraocular muscles intact. Moist mucous membranes noted. NECK: Soft and supple. Trachea midline. CARDIOVASCULAR: Positive S1 and S2. Regular rate and rhythm. No murmur auscultated. RESPIRATORY: Clear to auscultation bilaterally. The patient does appear to have some mild decreased breath sounds at the bases, otherwise no wheezing, rales, or rhonchi. ABDOMEN: Soft, nontender. Bowel sounds present. MUSCULOSKELETAL: Moves all extremities equal. Pedal pulses 2+ bilaterally. Trace edema noted in bilateral lower extremities. NEUROLOGIC: Cranial nerves 2 through 12 grossly intact. No focal deficits noted. Speech intact and normal. Gait not assessed. SKIN: Warm, dry and intact. PSYCHIATRIC: Good mood and affect. LABORATORY DATA: WBC 10.1, RBC 3.35, hemoglobin 9.7, hematocrit 29.5, platelets 259. Sodium 132, potassium 4.0, anion gap 12, BUN 48, creatinine 1.91, estimated GFR 26. Troponin negative x2. BNP 1245.8. Urinalysis showed 2+ blood, 200 protein, greater than 50 rbc's, 4 to 6 wbcs with no bacteria. DIAGNOSTIC IMAGING: Portable chest x-ray showed interstitial prominence with pulmonary hyperinflation with no lobar consolidation or alveolar edema. The prominence is worsened slightly since the prior exam and mild degree of interstitial pulmonary edema is a possibility. ASSESSMENT/PLAN: 1. Congestive heart failure exacerbation. The patient will be treated symptomatically with IV furosemide and an echocardiogram is ordered and pending at this time. Cardiology Services, Dr. Blackmon is consulted and following at this time, who had thought that the symptoms are likely from home medication of Plaquenil, with this being recently started. Therefore, this will be stopped during hospital course and it is recommended that the patient no longer take this medication. 2. Hypertension. Restart home regimen and monitor blood pressure and other vital signs closely. 3. Hyperlipidemia. 4. History of rheumatoid arthritis. 5. Chronic kidney disease. Recheck BMP in the morning. 6. History of paroxysmal atrial fibrillation, currently stable. 7. Deep venous thrombosis and gastrointestinal prophylaxis. 8. Code status, full code. 9. Her surrogate decision maker is her daughter, Miroslava. DISPOSITION: Pending further workup, clinical findings. Job ID: [id number]
[2019-06-29] MEDS: Pregabalin 50 MG CAP PO SCH (20:48)
[2019-06-29] MEDS: Atorvastatin Calcium 40 MG TAB PO SCH (20:48)
[2019-06-29] MEDS: Dabigatran 150 mg Capsule PO SCH (20:49)
[2019-06-29] MEDS ORDERED: Non-Formulary Item 1 EACH (Atorvastatin Calcium [Lipitor] 80 MG) PO SCH (21:00)
--- NOTE | 2019-06-30 02:27 | CON ---
DATE OF CONSULTATION: 06/29/2019 CONSULTING DOCTOR: KRISTAN Brown. REASON FOR CONSULTATION: Acute kidney injury. REASON FOR ADMISSION: Shortness of breath and cough. HISTORY OF PRESENT ILLNESS: A 69-year-old white female with history of hypertension, rheumatoid arthritis, CKD, came to the hospital with above complaints and was found to have elevated creatinine. The patient was recently started on colchicine for pericarditis and discharged home and is also started on hydroxychloroquine. She was found to be fluid overloaded and shortness of breath is being treated and the patient does follow up with me for CKD care. No chest pain or palpitation. No fever or chills reported. No nausea or vomiting. PAST MEDICAL HISTORY: Positive for hypertension, rheumatoid arthritis, osteoarthritis, CVA, CKD. SURGICAL HISTORY: Hysterectomy, tonsillectomy, back surgery, rotator cuff surgery on right shoulder. HOME MEDICATIONS: 1. Plaquenil. 2. Atorvastatin. 3. Dabigatran. 4. Lexapro. 5. Losartan. 6. Pregabalin. ALLERGIES: CHLORHEXIDINE AND ADHESIVE TAPE. SOCIAL HISTORY: No smoking, alcohol, or illicit drugs. FAMILY HISTORY: No history of kidney disease. REVIEW OF SYSTEMS: CONSTITUTIONAL: Negative for weight loss or gain, ability to conduct usual activities. SKIN: Negative for rash, itching. EYES: Negative for double vision, pain. ENT/MOUTH: Negative for nose bleeding, neck stiffness, pain, tenderness. CARDIOVASCULAR: Negative for palpitations, dyspnea on exertion, orthopnea. RESPIRATORY: Negative for wheezing, hemoptysis, fever or night sweats. GASTROINTESTINAL: Negative for poor appetite, abdominal pain, heartburn, nausea, vomiting, constipation, or diarrhea. GENITOURINARY: Negative for urgency, frequency, dysuria, nocturia. MUSCULOSKELETAL: Negative for pain, swelling. NEUROLOGIC/PSYCHIATRIC: Negative for anxiety, depression. ALLERGY/IMMUNOLOGIC: Negative for skin rash, bleeding tendency. PHYSICAL EXAMINATION: GENERAL: A well-built female, in no apparent distress. VITAL SIGNS: Temperature 98.6, pulse 62, respiratory rate 16, blood pressure 163/74. HEENT: Atraumatic, normocephalic. Oral mucosa is moist. NECK: Supple. CV: S1 and S2. Rate and rhythm regular. RESPIRATORY: Clear. GASTROINTESTINAL: Abdomen is soft. MUSCULOSKELETAL: No edema. DERMATOLOGIC: No skin rash. NEUROLOGIC: Alert and awake. PSYCHIATRIC: Mood and affect normal. LABORATORY DATA: Hemoglobin 9.6. Potassium 3.9, BUN is 50, creatinine is 1.9. ASSESSMENT: 1. Acute kidney injury on chronic kidney disease stage 3, most likely secondary to cardiorenal syndrome. Agree with Lasix for now and holding losartan while on diuresis. 2. Edema as above. 3. Fluid overload. 4. Hyponatremia, better. 5. Chronic anemia. 6. History of hypertension, stable. 7. Mild hypoalbuminemia. PLAN: Continue on Lasix and monitor renal function and electrolytes. Replace potassium as needed and monitor potassium and magnesium. We will follow. Thank you for the consult. Job ID: [id number]
[2019-06-30 05:31] LABS: #Lymphocytes 1.2 thou/uL (1.20-3.40); #Monocytes 0.8 thou/uL (0.11-0.59); #Neutrophils 5.3 thou/uL (1.40-6.50); %Basophils 0.3 % (0.0-1.0); %Eosinophils 0.5 % (0.0-10.0); %Lymphocytes 16.1 % (21.0-51.0); %Monocytes 10.6 % (0.0-10.0); %Neutrophils 72.4 % (42.0-75.0); Hemoglobin 9.4 g/dL (12.0-16.0); Mean Corpuscular HGB CONC 33.5 g/dL (32.0-36.0); Mean Corpuscular Hemoglobin 29.3 pg (27.0-31.0); Mean Corpuscular Volume 87.4 fL (78.0-98.0); Platelet Count 219 thou/uL (130-400); RBC Distribution Width 12.5 % (11.5-14.5); Red Blood Cell (RBC) Count 3.22 mill/uL (4.20-5.40); White Blood Cell (WBC) Count 7.4 thou/uL (4.8-10.8)
[2019-06-30] MEDS: Furosemide 20 MG/2 ML VIAL SLOW IVP SCH ×2 (05:37→14:15)
[2019-06-30 05:54] LABS: Anion Gap 12 mmol/L (10-20); BUN (Urea Nitrogen) 48 mg/dL (9.8-20.1); Calc. Creatinine Clearance 40 mL/min (70-130); Calcium 8.5 mg/dL (7.8-10.44); Carbon Dioxide 25 mmol/L (23-31); Chloride 104 mmol/L (98-107); Cholesterol 123 mg/dl (< 200 Desired); Estimated GFR-MDRD 27; Glucose 107 mg/dL (80-115); HDL Cholesterol 41 mg/dL (>60 Neg Risk); LDL Cholesterol, Calculated 70 mg/dL; Magnesium 3.1 mg/dL (1.6-2.6); Potassium 3.9 mmol/L (3.5-5.1); Sodium 137 mmol/L (136-145); Triglycerides 62 mg/dL (Less than 150)
[2019-06-30] MEDS: Pregabalin 50 MG CAP PO SCH ×2 (08:57→21:10)
[2019-06-30] MEDS: Escitalopram Oxalate 10 mg Tablet PO SCH (08:59)
[2019-06-30] MEDS: Dabigatran 150 mg Capsule PO SCH ×2 (09:00→21:11)
[2019-06-30] MEDS ORDERED: Losartan 25 MG TAB PO SCH (09:00)
--- NOTE | 2019-06-30 10:06 | PDOC.EVN ---
Event Note - Event Note Event Note: Patient reported having an echo here last month. No report seen in the system. Will attempt to get a copy of the report.
[2019-06-30] MEDS ORDERED: Triamcinolone 0.1% Cream 30 GM TUBE TOP PRN (10:59)
[2019-06-30] MEDS ORDERED: Loratadine 10 MG TAB PO SCH (11:00)
--- NOTE | 2019-06-30 11:15 | PDOC.HOSPP ---
- Subjective Subjective: Doing better overall, but still has CHRISTINA just going to the bathroom. She had pericarditis treated here last month. Had an echo done then that she says was reported as normal. (That report is not in the system). She has no chest pain now. Mild productive cough. - Objective Vital Signs & Weight: Vital Signs (12 hours) Temp Pulse Resp BP Pulse Ox 06/30/19 08:00 63 180/86 H 06/30/19 07:57 98.3 F 62 12 186/84 H 96 06/30/19 03:24 98.3 F 68 16 147/82 H 92 L 06/29/19 23:34 98.8 F 72 16 149/70 H 92 L Weight Admit Weight 202 lb 1.6 oz Weight 192 lb 8 oz I&O: 06/29/19 06/30/19 07/01/19 06:59 06:59 06:59 Intake Total 50 705 Output Total 3200 Balance 50 -2495 Result Diagrams: 06/30/19 05:22 06/30/19 05:22 Hospitalist ROS - Medication Medications: Active Medications Generic Name Dose Route Start Last Admin Trade Name Freq PRN Reason Stop Dose Admin Atorvastatin Calcium 80 mg 06/29/19 21:00 06/29/19 20:48 Lipitor PO 80 mg HS BRITTNEY Administration Dabigatran 150 mg 06/29/19 21:00 06/30/19 09:00 Pradaxa PO 150 mg BID BRITTNEY Administration Escitalopram Oxalate 10 mg 06/30/19 09:00 06/30/19 08:59 Lexapro PO 10 mg DAILY BRITTNEY Administration Furosemide 20 mg 06/29/19 14:00 06/30/19 05:37 Lasix SLOW IVP 20 mg 0600,1400 BRITTNEY Administration Loratadine 10 mg 06/30/19 11:00 06/30/19 11:09 Claritin PO 06/30/19 13:00 10 mg NOW BRITTNEY Administration Pregabalin 50 mg 06/29/19 21:00 06/30/19 08:57 Lyrica PO 50 mg BID BRITTNEY Administration Sodium Chloride 10 ml 06/29/19 09:00 06/30/19 09:00 Flush - Normal Saline IVF 10 ml Q12HR BRITTNEY Administration - Exam General Appearance: NAD, awake alert Heart: RRR, no murmur, no gallops, no rubs, normal peripheral pulses Respiratory: CTAB, no wheezes, no rales, no ronchi, normal chest expansion, no tachypnea, normal percussion Gastrointestinal: soft, non-tender, non-distended, normal bowel sounds, no palpable masses, no hepatomegaly, no splenomegaly, no bruit Musculoskeletal: normal tone, normal strength, no muscle wasting Psychiatric: normal affect, normal behavior, A&O x 3 Hosp A/P (1) Acute systolic (congestive) heart failure Code(s): I50.21 - ACUTE SYSTOLIC (CONGESTIVE) HEART FAILURE Status: Acute (2) Anticoagulant long-term use Code(s): Z79.01 - EDGER LINER (CURRENT) USE OF ANTICOAGULANTS Status: Acute (3) Atrial fibrillation, currently in sinus rhythm Code(s): Z86.79 - PERSONAL HISTORY OF OTHER DISEASES OF THE CIRCULATORY SYSTEM Status: Acute (4) HTN (hypertension) Code(s): I10 - ESSENTIAL (PRIMARY) HYPERTENSION Status: Acute (5) Rheumatoid arthritis Code(s): M06.9 - RHEUMATOID ARTHRITIS, UNSPECIFIED Status: Acute (6) Acute on chronic kidney failure Code(s): N17.9 - ACUTE KIDNEY FAILURE, UNSPECIFIED; N18.9 - CHRONIC KIDNEY DISEASE, UNSPECIFIED Status: Acute (7) CKD (chronic kidney disease), stage III Code(s): N18.3 - CHRONIC KIDNEY DISEASE, STAGE 3 (MODERATE) Status: Acute - Plan Improved with Lasix. Continue with same. Has severe MR on Echo. Likely the source of her failure given that there is no reduction in EF and no Diastolic dysfunction noted. Need to compare to the echo from one month ago. Requested report. Cardiology consulted. Holding Plaquenil. PE unlikely with the ongoing use of anticoagulation. GFR slightly improved with diuresis. Cardiorenal syndrome. D/W Neprhology. Continue current plan. Patient likely has CKD from NSAIDS related to the RA. Off those now.
--- NOTE | 2019-06-30 11:37 | PRG ---
DATE OF SERVICE: 06/30/2019 SUBJECTIVE: Patient was seen and examined at bedside and overnight events noted. Patient denies any shortness of breath or chest pain or palpitation. No history of nausea or vomiting or diarrhea or fever or chills or cramps. OBJECTIVE: GENERAL: This is a well built female in no apparent distress. VITAL SIGNS: Temperature . Heart rate 60. Respiratory rate 12. Blood pressure 180/86. HEENT: Atraumatic, normocephalic. Oral mucosa is moist NECK: Supple. CARDIOVASCULAR: S1, S2 heard. Rate and rhythm regular. RESPIRATORY: Clear to auscultation. GASTROINTESTINAL: Abdomen is soft. MUSCULOSKELETAL: No tenderness. No edema. DERMATOLOGIC: No skin rash. NEUROLOGIC: Alert and awake and oriented X3. No focal neurologic deficits. Moving all the extremities. PSYCHIATRIC: Mood and affect normal. LABORATORY DATA: Potassium is 3.9, BUN is 48, creatinine is 1.8, GFR is 27. ASSESSMENT AND PLAN: 1. Acute kidney injury secondary to cardiorenal syndrome. 2. Chronic kidney disease, stage 3. 3. Edema, fluid overload. 4. Cardiorenal syndrome. 5. History of hypertension. Creatinine seems to be slightly better. Okay with Lasix. We will follow with Cardiology. Plan discussed with Dr. Izquierdo. We will follow. Job ID: [id number]
--- NOTE | 2019-06-30 14:08 | EKG ---
Test Reason : Blood Pressure : / mmHG Vent. Rate : 068 BPM Atrial Rate : 068 BPM P-R Int : 172 ms QRS Dur : 092 ms QT Int : 442 ms P-R-T Axes : 065 033 058 degrees QTc Int : 469 ms Normal sinus rhythm Possible Left atrial enlargement Borderline ECG Confirmed by ROSANNA DE SOUZA DO ([id number]), book or script editor ARACELI HARPER ([id number]) on 06/30/2019 2:08:29 PM Referred By: Confirmed By:ROSANNA DE SOUZA DO
[2019-06-30] MEDS: diphenhydrAMINE 25 MG CAP PO PRN (21:10)
[2019-06-30] MEDS: Atorvastatin Calcium 40 MG TAB PO SCH (21:10)
[2019-07-01 04:38] LABS: #Eosinphils 0.2 thou/uL (0.0-0.7); #Lymphocytes 1.4 thou/uL (1.20-3.40); #Monocytes 0.8 thou/uL (0.11-0.59); %Basophils 0.2 % (0.0-1.0); %Eosinophils 2.2 % (0.0-10.0); %Lymphocytes 19.1 % (21.0-51.0); %Monocytes 11.1 % (0.0-10.0); %Neutrophils 67.4 % (42.0-75.0); Hemoglobin 9.9 g/dL (12.0-16.0); Platelet Count 259 thou/uL (130-400); RBC Distribution Width 12.7 % (11.5-14.5); White Blood Cell (WBC) Count 7.4 thou/uL (4.8-10.8)
[2019-07-01 05:00] LABS: Anion Gap 12 mmol/L (10-20); BUN (Urea Nitrogen) 52 mg/dL (9.8-20.1); Calc. Creatinine Clearance 36 mL/min (70-130); Calcium 8.5 mg/dL (7.8-10.44); Carbon Dioxide 27 mmol/L (23-31); Chloride 106 mmol/L (98-107); Estimated GFR-MDRD 25; Glucose 103 mg/dL (80-115); Potassium 3.9 mmol/L (3.5-5.1); Sodium 141 mmol/L (136-145)
[2019-07-01] MEDS: hydrALAZINE 20 MG/ML VIAL SLOW IVP PRN ×2 (05:23→09:31)
[2019-07-01] MEDS: Furosemide 20 MG/2 ML VIAL SLOW IVP SCH (05:52)
[2019-07-01] MEDS: Pregabalin 50 MG CAP PO SCH ×2 (09:20→20:17)
[2019-07-01] MEDS: Dabigatran 150 mg Capsule PO SCH ×2 (09:22→20:18)
[2019-07-01] MEDS: Escitalopram Oxalate 10 mg Tablet PO SCH (09:23)
[2019-07-01] MEDS: Loratadine 10 MG TAB PO SCH (09:23)
--- NOTE | 2019-07-01 09:33 | PRG ---
DATE OF SERVICE: 07/01/2019 SUBJECTIVE: Patient was seen and examined at bedside and overnight events noted. Patient denies any shortness of breath or chest pain or palpitation. No history of nausea or vomiting or diarrhea or fever or chills or cramps. OBJECTIVE: GENERAL: This is a well-built female, in no apparent distress. VITAL SIGNS: Temperature 97.5. Heart rate 90. Respiratory rate 14. Blood pressure . HEENT: Atraumatic, normocephalic. Oral mucosa is moist. NECK: Supple. CARDIOVASCULAR: S1, S2 heard. Rate and rhythm regular. RESPIRATORY: Clear to auscultation. GASTROINTESTINAL: Abdomen is soft. MUSCULOSKELETAL: No tenderness. No edema. DERMATOLOGIC: No skin rash. NEUROLOGIC: Alert and awake and oriented x3. No focal neurologic deficits. Moving all the extremities. PSYCHIATRIC: Mood and affect normal. LABORATORY DATA: Potassium is 3.9, BUN is 52, and creatinine is 1.9. ASSESSMENT AND PLAN: 1. Acute kidney injury on chronic kidney disease, stage 3 with bump in creatinine today and the patient reports back to her baseline weight and feeling normal, feeling back to her baseline respiratory status. We will reduce the Lasix to once a day. 2. Chronic kidney disease, stage 3. 3. Edema. 4. Fluid overload. 5. Cardiorenal syndrome. 6. History of hypertension. 7. Mild anemia. 8. We will reduce Lasix and monitor renal function. Continue to hold losartan for now. Monitor renal function closely. Job ID: [id number]
[2019-07-01] MEDS: diphenhydrAMINE 25 MG CAP PO PRN (12:12)
[2019-07-01] MEDS: Triamcinolone 0.1% Cream 15 GM TUBE TOP PRN (16:11)
[2019-07-01] MEDS ORDERED: hydrALAZINE 25 MG TAB PO SCH (19:00)
[2019-07-01] MEDS: Atorvastatin Calcium 40 MG TAB PO SCH (20:18)
[2019-07-02] MEDS: diphenhydrAMINE 25 MG CAP PO PRN (01:44)
[2019-07-02] MEDS: Triamcinolone 0.1% Cream 15 GM TUBE TOP PRN (01:50)
[2019-07-02] MEDS: Furosemide 20 MG/2 ML VIAL SLOW IVP SCH (05:53)
[2019-07-02 06:30] LABS: Anion Gap 13 mmol/L (10-20); BUN (Urea Nitrogen) 49 mg/dL (9.8-20.1); Calc. Creatinine Clearance 41 mL/min (70-130); Calcium 8.6 mg/dL (7.8-10.44); Carbon Dioxide 24 mmol/L (23-31); Chloride 105 mmol/L (98-107); Estimated GFR-MDRD 30; Glucose 90 mg/dL (80-115); Potassium 3.8 mmol/L (3.5-5.1); Sodium 138 mmol/L (136-145)
[2019-07-02] MEDS: hydrALAZINE 20 MG/ML VIAL SLOW IVP PRN ×2 (07:57→14:34)
--- NOTE | 2019-07-02 09:55 | PRG ---
DATE OF SERVICE: 07/02/2019 SUBJECTIVE: Ms. Mixon is doing much better. She has much less shortness of breath. Her most recent echo did suggest severe mitral regurgitation. This is a new finding. Her last echo one month ago did not suggest MR. OBJECTIVE: VITAL SIGNS: Blood pressure 182/81 and pulse 61, and temperature afebrile. LUNGS: Clear to auscultation. HEART: Regular rate and rhythm. ABDOMEN: Soft, nontender, and nondistended. EXTREMITIES: No edema. PERTINENT LABORATORY DATA: Hemoglobin 9.9 and hematocrit 29.9. IMPRESSION: Acute mitral regurgitation. RECOMMENDATIONS: Ms. Mixon's symptoms are likely related to acute mitral regurgitation. The etiology is unknown. This may be due to ischemic MR versus spontaneous rupture. No previous trauma present. No significant change in medications. At this point, we recommend a JACKIE to assess the competency of the valve. I discussed the procedure in full detail with Ms. iMxon. Risks included, not limited to the following: Damage to teeth, mouth, back of throat, damage to esophagus requiring emergency surgery as well as reaction to medication. All questions were answered. Given the above, the patient agreed to proceed with above procedure. We will also proceed with coronary angiography likely tomorrow to assess her coronary anatomy. Risks include not limited to the following: , stroke, NH, need for emergency surgery, loss of limb, bleeding, and infection, as well as a reaction to the dye causing kidney failure and needing long-term dialysis. I also discussed the risks of PCI to include all of the above including coronary dissection and perforation in addition to acute stent thrombosis and restenosis. All questions about the procedure were answered. Given the above, the patient agreed to proceed with coronary angiography and possible PCI. All questions were answered. Given the above, the patient agreed to proceed with above procedure. Job ID: [id number]
--- NOTE | 2019-07-02 10:15 | PRG ---
DATE OF SERVICE: 07/02/2019 SUBJECTIVE: A 69-year-old female being seen for acute kidney injury. The patient denied nausea, vomiting, or chest pain. OBJECTIVE: See above. The patient is awake, alert. VITAL SIGNS: Pulse 88, breathing 16, blood pressure 187/82. GENERAL APPEARANCE AND MENTAL STATUS: Fair. HEAD/NECK: Normocephalic. Atraumatic. EYES: EOMI. No deformity. EARS: Clear. No ulcers. NOSE: Intact. No lesions. MOUTH: Clear. No discharge. THROAT: Clear. No exudate. LUNGS: Clear. No crackles. CARDIAC: S1, S2. No rub. ABDOMEN: Benign. Bowel sounds positive. GENITALIA/RECTUM: Trejo absent. BACK/EXTREMITIES: Edema 0+. NEUROLOGICAL: Alert and motor intact. SKIN: LYMPHATICS: LABORATORY DATA: Reviewed. ASSESSMENT AND PLAN: 1. Acute kidney injury on chronic kidney disease, improved. 2. Hypertension. 3. Anemia, stable. 4. Medication based on GFR appropriate. No indication for dialysis at this time. I would recommend getting a renal ultrasound. Job ID: [id number]
--- NOTE | 2019-07-02 11:45 | ULT ---
US Renal Bilateral STANDARD: 07/02/2019 9:51 AM CLINICAL HISTORY: Acute kidney injury. STUDY: Renal ultrasound COMPARISON: None. FINDINGS: Right kidney: Echogenicity: Normal. Masses/cysts: None. Hydronephrosis: None. Calcifications: None. Length: 7.8 cm Left kidney: Echogenicity: Normal. Masses/cysts: None. Hydronephrosis: None. Calcifications: None. Length: 10.1 cm Limited visualization of the urinary bladder is unremarkable. IMPRESSION: Unremarkable renal ultrasound
[2019-07-02] MEDS: Dabigatran 150 mg Capsule PO SCH ×3 (14:30→22:28)
[2019-07-02] MEDS: hydrALAZINE 25 MG TAB PO SCH ×2 (14:31→22:14)
[2019-07-02] MEDS: Pregabalin 50 MG CAP PO SCH ×2 (14:31→22:14)
[2019-07-02] MEDS: Loratadine 10 MG TAB PO SCH (14:31)
[2019-07-02] MEDS: Escitalopram Oxalate 10 mg Tablet PO SCH (14:32)
[2019-07-02] MEDS ORDERED: PROPOFOL 200 MG/20 ML VIAL ONE (14:48)
--- NOTE | 2019-07-02 16:18 | PDOC.HOSPP ---
- Subjective Subjective: Doing ok. Feeling much better overall. CHRISTINA is much better. - Objective Vital Signs & Weight: Vital Signs (12 hours) Temp Pulse Resp BP BP BP Pulse Ox 07/02/19 15:41 97.3 F L 74 16 140/64 96 07/02/19 14:45 69 185/80 H 07/02/19 14:34 60 196/84 H 07/02/19 14:31 60 196/84 H 07/02/19 13:50 98.0 F 63 18 186/83 H 95 07/02/19 11:34 98.4 F 70 16 165/77 H 98 07/02/19 09:09 66 182/78 H 07/02/19 08:10 98 07/02/19 07:57 61 182/81 H 07/02/19 07:52 98.7 F 60 18 195/84 H 98 07/02/19 05:51 97.8 F 62 16 187/82 H 97 Weight Admit Weight 202 lb 1.6 oz Weight 186 lb 3.2 oz I&O: 07/01/19 07/02/19 07/03/19 06:59 06:59 06:59 Intake Total 1522 980 Output Total 1750 1750 650 Balance -228 -770 -650 Result Diagrams: 07/01/19 04:24 07/02/19 05:17 Hospitalist ROS - Medication Medications: Active Medications Generic Name Dose Route Start Last Admin Trade Name Freq PRN Reason Stop Dose Admin Atorvastatin Calcium 80 mg 06/29/19 21:00 07/01/19 20:18 Lipitor PO 80 mg HS BRITTNEY Administration Dabigatran 150 mg 06/29/19 21:00 07/02/19 14:30 Pradaxa PO Not Given BID BRITTNEY Diphenhydramine HCl 25 mg 06/30/19 10:59 07/02/19 01:44 Benadryl PO 25 mg Q6H PRN Administration Itching & Insomnia Escitalopram Oxalate 10 mg 06/30/19 09:00 07/02/19 14:32 Lexapro PO 10 mg DAILY BRITTNEY Administration Furosemide 20 mg 07/02/19 06:00 07/02/19 05:53 Lasix SLOW IVP 20 mg 0600 BRITTNEY Administration Hydralazine HCl 5 mg 06/29/19 06:15 07/02/19 14:34 Apresoline SLOW IVP 5 mg Q4H PRN Administration SBP Greater Than 180 Hydralazine HCl 50 mg 07/02/19 09:00 07/02/19 14:31 Apresoline PO 50 mg BID BRITTNEY Administration Loratadine 10 mg 07/01/19 09:00 07/02/19 14:31 Claritin PO 10 mg DAILY BRITTNEY Administration Pregabalin 50 mg 06/29/19 21:00 07/02/19 14:31 Lyrica PO 50 mg BID BRITTNEY Administration Sodium Chloride 10 ml 06/29/19 09:00 07/02/19 09:08 Flush - Normal Saline IVF 10 ml Q12HR BRITTNEY Administration Triamcinolone Acetonide 1 gm 07/01/19 16:09 07/02/19 01:50 Kenalog 0.1% Cream TOP 1 gm BIDPRN PRN Administration .ITCHING - Exam General Appearance: NAD, awake alert Neck: supple, symmetric, no JVD, no thyromegaly, no lymphadenopathy, no carotid bruit Heart: RRR, no murmur, no gallops, no rubs, normal peripheral pulses Respiratory: CTAB, no wheezes, no rales, no ronchi, normal chest expansion, no tachypnea, normal percussion Gastrointestinal: soft, non-tender, non-distended, normal bowel sounds, no palpable masses, no hepatomegaly, no splenomegaly, no bruit Skin: normal turgor, no lesions, no rashes Musculoskeletal: normal tone, normal strength, no muscle wasting Psychiatric: normal affect, normal behavior, A&O x 3 Hosp A/P (1) Acute systolic (congestive) heart failure Code(s): I50.21 - ACUTE SYSTOLIC (CONGESTIVE) HEART FAILURE Status: Acute (2) Anticoagulant long-term use Code(s): Z79.01 - BRICKLAYER PAVING BRICK (CURRENT) USE OF ANTICOAGULANTS Status: Acute (3) Atrial fibrillation, currently in sinus rhythm Code(s): Z86.79 - PERSONAL HISTORY OF OTHER DISEASES OF THE CIRCULATORY SYSTEM Status: Acute (4) HTN (hypertension) Code(s): I10 - ESSENTIAL (PRIMARY) HYPERTENSION Status: Acute (5) Rheumatoid arthritis Code(s): M06.9 - RHEUMATOID ARTHRITIS, UNSPECIFIED Status: Acute (6) Acute on chronic kidney failure Code(s): N17.9 - ACUTE KIDNEY FAILURE, UNSPECIFIED; N18.9 - CHRONIC KIDNEY DISEASE, UNSPECIFIED Status: Acute (7) CKD (chronic kidney disease), stage III Code(s): N18.3 - CHRONIC KIDNEY DISEASE, STAGE 3 (MODERATE) Status: Acute - Plan Improved with Lasix. Continue with same. Has severe MR on Echo. Likely the source of her failure given that there is no reduction in EF and no Diastolic dysfunction noted. Discussed with Dr. Blackmon. He reviewed prior echo and this is new. JACKIE and cath. Holding Plaquenil. PE unlikely with the ongoing use of anticoagulation. GFR slightly improved with diuresis. Cardiorenal syndrome. D/W Neprhology. Continue current plan. Patient likely has CKD from NSAIDS related to the RA. Off those now. US nml.
[2019-07-02] MEDS ORDERED: Communication Order-Pharmacy FS SCH (18:30)
[2019-07-02] MEDS: Atorvastatin Calcium 40 MG TAB PO SCH (22:29)
[2019-07-03 05:38] VITALS: BMI 30.4
[2019-07-03] MEDS: Furosemide 20 MG/2 ML VIAL SLOW IVP SCH (05:40)
[2019-07-03] MEDS: Sodium Chloride 0.9% 1,000 ML IV SCH ×2 (06:33→16:25)
[2019-07-03 08:29] LABS: Anion Gap 13 mmol/L (10-20); BUN (Urea Nitrogen) 59 mg/dL (9.8-20.1); Calc. Creatinine Clearance 37 mL/min (70-130); Calcium 8.7 mg/dL (7.8-10.44); Carbon Dioxide 25 mmol/L (23-31); Chloride 105 mmol/L (98-107); Estimated GFR-MDRD 26; Glucose 91 mg/dL (80-115); Potassium 3.8 mmol/L (3.5-5.1); Sodium 139 mmol/L (136-145)
[2019-07-03] MEDS: Pregabalin 50 MG CAP PO SCH (09:18)
[2019-07-03] MEDS: Loratadine 10 MG TAB PO SCH (09:19)
[2019-07-03] MEDS: Escitalopram Oxalate 10 mg Tablet PO SCH (09:19)
--- NOTE | 2019-07-03 09:57 | PRG ---
DATE OF SERVICE: 07/03/2019 SUBJECTIVE: Ms. Mixon is doing well. No current complaints. She states she did gain 3 pounds overnight although with a use of bed scale. She has no apparent complaints. No shortness of breath, chest pain or pressure. Her blood pressure appears much better. PHYSICAL EXAMINATION: GENERAL: The patient is a pleasant female who is in no acute distress. The patient appears their stated age. VITAL SIGNS: Blood pressure 144/67, pulse 67, and temperature 97.8. NEUROLOGIC: The patient is alert and oriented x3 with no focal neurologic deficits. HEENT: Sclerae without icterus. Mouth has moist mucous membranes with normal pallor. NECK: No JVD. Carotid upstroke brisk. No bruits bilaterally. LUNGS: Clear to auscultation with unlabored respirations. BACK: No scoliosis or kyphosis. CARDIAC: Regular rate and rhythm with normal S1 and S2. No S3 or S4 noted. No significant rubs, murmurs, thrills, or gallops noted throughout the precordium. PMI is not displaced. There is no parasternal heave. ABDOMEN: Soft, nontender, nondistended. No peritoneal signs present. No hepatosplenomegaly. No abnormal striae. EXTREMITIES: 2+ femoral and 2+ dorsalis pedis pulses. No cyanosis, clubbing, or edema. SKIN: No gross abnormalities. PERTINENT LABORATORY DATA: Hemoglobin 9.9. Creatinine 1.91 with a GFR of 26. Peak troponin of 0.054. IMPRESSION: 1. Transient mitral regurgitation. 2. Rheumatoid arthritis. 3. Paroxysmal atrial fibrillation. RECOMMENDATIONS: The initial thought was to proceed with coronary angiography. I had discussed this in full detail with Ms. Mixon. She did get her last dose of Pradaxa yesterday. She will unlikely be able to proceed with angio until Tuesday afternoon or . She will also need to be hydrated, given a creatinine of 1.9, which has increased from 1.6. In the interim, we will proceed with a noninvasive stress study to assess for any areas of ischemia. We will then make any further decisions on whether to proceed with angiography. The patient is agreeable. We will hold Pradaxa in case angio is recommended. Job ID: [id number]
--- NOTE | 2019-07-03 10:34 | PRG ---
DATE OF SERVICE: 07/03/2019 SUBJECTIVE: A 69-year-old female is being seen for acute kidney injury. The patient denies any nausea, vomiting, or chest pain. OBJECTIVE: GENERAL: The patient is awake and alert. VITAL SIGNS: Pulse 67, breathing 16, blood pressure 144/67. GENERAL APPEARANCE AND MENTAL STATUS: Fair. HEAD/NECK: Normocephalic. Atraumatic. EYES: EOMI. No deformity. EARS: Clear. No ulcers. NOSE: Intact. No lesions. MOUTH: Clear. No discharge. THROAT: Clear. No exudate. LUNGS: Clear. No crackles. CARDIAC: S1, S2. No rub. ABDOMEN: Benign. Bowel sounds positive. GENITALIA/RECTUM: Trejo absent. BACK/EXTREMITIES: Edema 0+. NEUROLOGICAL: Alert and motor intact. LABORATORY DATA: Creatinine is 1.9. IMPRESSION AND PLAN: 1. Acute kidney injury on chronic kidney disease due to cardiorenal syndrome in the setting of severe mitral regurgitation. 2. Hypertension, stable. 3. Anemia, stable. 4. Medication based on GFR appropriate. 5. No indication for dialysis at this time. 6. Proteinuria. We will quantitate the protein in the urine. Job ID: [id number]
--- NOTE | 2019-07-03 13:24 | NM ---
EXAM: Nuclear medicine cardiac perfusion examination with ejection fraction HISTORY: Shortness of breath TECHNIQUE: Rest images: 9 mCi technetium 99m sestamibi Stress images: 30.3 mCi of technetium 9M sestamibi; Adenosine COMPARISON: None FINDINGS: Tomographic images: No fixed or reversible perfusion defects. Gated images: Normal wall motion and ejection fraction of greater than 70%. EDV: 96 mL LHR: 0.3 TID: 1.2 IMPRESSION: No evidence of ischemia
[2019-07-03] MEDS: hydrALAZINE 25 MG TAB PO SCH (13:32)
[2019-07-03 16:07] VITALS: BP 145/65; TEMP 97.6
[2019-07-03 16:17] LABS: Creatinine, Urine 71.63 mg/dL (47-110)
[2019-07-03] MEDS ORDERED: ADENOSINE 60 MG/20 ML VIAL ONE (20:30)
--- NOTE | 2019-07-04 08:21 | DIS ---
DATE OF ADMISSION: 07/01/2019 DATE OF DISCHARGE: 07/03/2019 DISCHARGE DIAGNOSES: 1. Acute systolic congestive heart failure. 2. Transient severe mitral regurgitation. 3. History of rheumatoid arthritis. 4. History of paroxysmal atrial fibrillation. 5. Acute on chronic kidney injury. 6. Chronic kidney disease stage 3, now apparently at stage 4. HISTORY OF PRESENT ILLNESS: This patient is a 69-year-old female with a history of rheumatoid arthritis and paroxysmal atrial fibrillation for which she is on Pradaxa. The patient had recently been treated with the addition of Plaquenil for her rheumatoid arthritis. The patient presented to the emergency department with cough and shortness of breath for approximately 2 days. She had negative troponins. BNP was elevated at 1246. Chest x-ray showed signs of some volume overload. She was given diuretics and seen in the ER by Dr. 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 HOSPITAL COURSE: The patient was admitted, followed by Cardiology. She had daily diuresis and consultation by the Nephrology as well. Her labs revealed a GFR initially of 26, whereas her most recent on 05/20, had been 51 and her average was around upper 40s to low 50s. She had a very slight increase in her troponins to a peak of 0.054. Her creatinine unfortunately stayed between 25 and 30 throughout her hospitalization. In spite of the diuresis during that time, her symptoms improved significantly. Her shortness of breath essentially resolved with the diuresis. Her ARB was discontinued at one point in hopes that it would improve the overall GFR ; however, it did not substantially change in that setting. Her diuretics were backed off a bit and she remained stable. From a cardiac perspective, the patient did have an echocardiogram which revealed severe mitral regurgitation with an EF of 55% to 60%. It was felt that the patient likely was suffering acute onset of congestive heart failure and acute kidney injury due to new finding of the severe mitral regurgitation. Once she was stabilized from the heart failure with the diuresis , she underwent a transesophageal echocardiogram which did not reveal significant mitral dysfunction. There was concern the patient was having ischemia-induced transient valve dysfunction, so the plan was originally to have a heart catheterization, however being that she had been on Pradaxa, it was held and the patient underwent a nuclear medicine stress test. This stress test returned unremarkable with an ejection fraction of 70%. She had a discussion with Dr. Blackmon with the plan to discharge the patient and continue to monitor this as an outpatient. Given that it was felt the mitral valve was likely the underlying source of the decompensation, the Plaquenil was no longer felt to be a source of cardiomyopathy. The patient's pipe processor, Dr. Yan's office was closed at the time of her discharge, therefore did not engage her further about carrying on with that, however, appears to be no contraindication to that at this time. The patient also had a renal ultrasound performed at the request of Nephrology, which returned unremarkable. Her ARB was transently held to ensure it was not adversely effecting the renal function, but her numbers did not change. It was resumed. With the patient's symptoms improved and her creatinine stable although at a lower functional level, the patient was felt to be stable for discharge to have outpatient followup. PHYSICAL EXAMINATION: VITAL SIGNS: On the day of discharge, her temperature is 97.6, pulse 77, respirations 16, O2 saturations 96% on room air, BP was 145/65. GENERAL: She is awake, alert, oriented, pleasant, and cooperative. HEART: Regular without murmurs. LUNGS: Clear bilaterally. ABDOMEN: Benign. EXTREMITIES: Has no significant edema. DISPOSITION: The patient is discharged home. She is to have a heart healthy low-sodium diet. ACTIVITY: Activity level is as tolerated. MEDICATIONS: She will continue with her usual home medications to include: 1. Plaquenil 200 mg daily. 2. Atorvastatin 80 mg at bedtime. 3. Lexapro 10 mg daily. 4. Pradaxa 150 mg b.i.d. 5. Lyrica 50 mg b.i.d. 6. Losartan 50 mg daily. 7. Lasix 20 mg daily as needed. She will have as needed for shortness of breath. FOLLOWUP: She is to follow up with Dr. Norma King, her PCP on 07/06/2019 , at 0950. She is to make followup appointments with Dr. Blackmon and Dr. Duff. She can return to the hospital at anytime should she feel the need to do so. TIME SPENT: Total time in discharge activities was 33 minutes. Job ID: [id number] [facility]
== END 2019-07-03 18:40 | disposition home or self-care (01) | DRG 291 ==
LOC: ERS 00:01 → 2SE 02:52 → OBSVTOIN 07-01 17:29
PROVIDERS: ADMIT Internal Medicine; ATTEND Internal Medicine
DX: I13.0 Hypertensive heart and chronic kidney disease with heart failure and stage 1 through stage 4 chronic kidney disease, or unspecified chronic kidney disease (principal); I50.21 Acute systolic (congestive) heart failure; N17.9 Acute kidney failure, unspecified; E87.1 Hypo-osmolality and hyponatremia; N18.4 Chronic kidney disease, stage 4 (severe); M06.9 Rheumatoid arthritis, unspecified; E78.5 Hyperlipidemia, unspecified; G47.33 Obstructive sleep apnea (adult) (pediatric); I48.0 Paroxysmal atrial fibrillation; I42.9 Cardiomyopathy, unspecified; D63.1 Anemia in chronic kidney disease; E88.09 Other disorders of plasma-protein metabolism, not elsewhere classified; I34.0 Nonrheumatic mitral (valve) insufficiency; T39.395A Adverse effect of other nonsteroidal anti-inflammatory drugs [NSAID], initial encounter; E78.00 Pure hypercholesterolemia, unspecified; Z79.82 Long term (current) use of aspirin; Z79.899 Other long term (current) drug therapy; Z86.73 Personal history of transient ischemic attack (TIA), and cerebral infarction without residual deficits; Z98.1 Arthrodesis status; Z90.710 Acquired absence of both cervix and uterus; Z88.8 Allergy status to other drugs, medicaments and biological substances; Z91.048 Other nonmedicinal substance allergy status; Z79.01 Long term (current) use of anticoagulants
CPT/HCPCS: 36415; 71045; 76770; 78452; 80048; 80053; 80061; 81003; 81015; 82570; 83735; 83880; 84156; 84484; 85025; 93005; 93017; 93306; 93312; 93798; 96374; A9500; J0153; J0360; J1940; Q0163

== ENCOUNTER 2019-10-23 18:45 | Emergency (ER) | payer MEDICARE ==
[2019-10-23] MEDS ORDERED: HYDROcodone/Acetaminophen 5/325 mg Tablet ONE (19:07)
--- NOTE | 2019-10-23 19:21 | CT ---
CT Brain WO Con: 10/23/2019 7:01 PM CLINICAL HISTORY: Fall with head injury. IMAGING TECHNIQUE: Multiple CT images were obtained of the brain without IV contrast. COMPARISON: MR the brain dated February 07, 2019 FINDINGS: Brain: No acute infarct or hemorrhage is evident. No midline shift. Ventricles: Normal. No hydrocephalus. Skull: Intact. Visualized Paranasal sinuses: Mild mucosal thickening within a posterior left ethmoid air cell. Mastoid air cells:Clear. Extracranial soft tissues:Moderate right frontal scalp contusion IMPRESSION: No acute intracranial abnormality.
--- NOTE | 2019-10-23 19:26 | CT ---
CT Cervical Spine WO Con Indication: Fall with concern for cervical spinal injury COMPARISON: CT cervical spine dated February 08, 2013 FINDINGS: Fracture: None. Spinal alignment: Slight anterior translation of C3 and C4 is stable. Mild retrolisthesis C5 on C6 is stable. Ankylosis at C4-5 is stable. Craniocervical junction: Within normal limits. Vertebral body heights: Maintained. Cervical spine degenerative change: There is worsening moderate to severe multilevel cervical spondyl osis. Lung apices: Clear. Prevertebral soft tissues: There is an enlarging hypodense lesion within the left thyroid lobe measur ing 1.2 cm. IMPRESSION: No acute osseous abnormality. Enlarging left thyroid lobe hypodensity. Nonemergent follow-up thyroid ultrasound is recommended. Worsening moderate to severe multilevel cervical spondylosis.
--- NOTE | 2019-10-23 19:33 | RAD ---
XR Hand Lt 3 View STANDARD: 10/23/2019 7:01 PM CLINICAL INDICATION: Left injury after fall COMPARISON: None. FINDINGS: Bones: There is diffuse osteopenia. Joints: There is ankylosis of the PIP joints of the ring finger and small digit. There are central er osive changes involving the DIP joints of the long, ring and small digit. There is advanced osteoarthritic change involving the IP joints as well as the first CMC joint. Soft Tissue: Soft tissues are normal appearing. IMPRESSION: No acute fracture or subluxation demonstrated. 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 Ankylosis of the PIP joints of the left ring and small digit .
== END 2019-10-23 20:41 | disposition home or self-care (01) ==
LOC: ERS 18:45
DX: S00.03XA Contusion of scalp, initial encounter (principal); E78.00 Pure hypercholesterolemia, unspecified; M19.90 Unspecified osteoarthritis, unspecified site; I10 Essential (primary) hypertension; I48.91 Unspecified atrial fibrillation; G47.30 Sleep apnea, unspecified; Z79.899 Other long term (current) drug therapy; Z86.73 Personal history of transient ischemic attack (TIA), and cerebral infarction without residual deficits; W18.09XA Striking against other object with subsequent fall, initial encounter
CPT/HCPCS: 70450; 72125

== ENCOUNTER 2021-02-18 12:30 | Inpatient (IN) | payer MEDICARE ==
[2021-03-27 13:44] VITALS: BMI 33.0
[2021-04-01 07:49] VITALS: BP 130/73
[2021-04-01 11:43] VITALS: TEMP 98.2
== END 2021-04-01 12:05 | disposition home health service (06) | DRG 470 ==
LOC: SURG A 03-30 06:19 → SJJU 03-30 13:12
PROVIDERS: ADMIT Orthopaedic Surgery; ATTEND Orthopaedic Surgery
PROC: 0SRC0J9 Replacement of Right Knee Joint with Synthetic Substitute, Cemented, Open Approach (ICD-10-PCS; principal; 2021-03-30)
PROC: 8E0YXBZ Computer Assisted Procedure of Lower Extremity (ICD-10-PCS; 2021-03-30)
DX: M17.11 Unilateral primary osteoarthritis, right knee (principal); I13.0 Hypertensive heart and chronic kidney disease with heart failure and stage 1 through stage 4 chronic kidney disease, or unspecified chronic kidney disease; E78.5 Hyperlipidemia, unspecified; I48.91 Unspecified atrial fibrillation; G47.33 Obstructive sleep apnea (adult) (pediatric); I50.9 Heart failure, unspecified; N18.9 Chronic kidney disease, unspecified; D63.1 Anemia in chronic kidney disease; F41.9 Anxiety disorder, unspecified; F32.9 Major depressive disorder, single episode, unspecified; Z90.710 Acquired absence of both cervix and uterus
CPT/HCPCS: 36415; 85027; C1713; C1776; J0690; J1100; J1170; J2250; J2405; J2704; J2795; J3010; J3490

== ENCOUNTER 2022-01-21 12:11 | Outpatient (CLI) | payer MEDICARE | END 2022-01-21 12:12 | disposition home or self-care (01) | LOC: TBSIIMAG 12:11 | PROVIDERS: ATTEND Nurse Practitioner Family | DX: M47.22 Other spondylosis with radiculopathy, cervical region (principal) | CPT/HCPCS: 72141 ==

== ENCOUNTER 2022-03-16 13:42 | Observation (INO) | payer MEDICARE ==
[2022-03-16] MEDS ORDERED: Dabigatran 150 mg Capsule PO SCH (21:00)
[2022-03-16] MEDS ORDERED: Morphine 4 MG/ML VIAL SLOW IVP PRN (21:32)
[2022-03-16] MEDS ORDERED: Acetaminophen 650 MG Suppository PR PRN (21:33)
[2022-03-16] MEDS ORDERED: Nitroglycerin 0.4 MG TAB (25 Tab Bottle) SL PRN (21:33)
[2022-03-16] MEDS ORDERED: Acetaminophen 325 MG TAB PO PRN (21:33)
[2022-03-16] MEDS ORDERED: Pantoprazole 40 MG VIAL IVP SCH ×2 (21:38→22:30)
[2022-03-16] MEDS ORDERED: Losartan 25 MG TAB PO SCH (21:45)
[2022-03-16] MEDS ORDERED: Ubidecarenone 50 MG CAP PO SCH (22:00)
[2022-03-16] MEDS ORDERED: hydrALAZINE 10 MG TAB PO SCH (22:00)
[2022-03-16] MEDS ORDERED: Atorvastatin Calcium 40 MG TAB PO SCH (22:00)
[2022-03-16] MEDS: Ketorolac Tromethamine 30 MG/ML VIAL IVP PRN (22:16)
[2022-03-16 23:01] LABS: Troponin I 0.012 ng/mL (< 0.028)
[2022-03-17 02:26] LABS: Troponin I 0.012 ng/mL (< 0.028)
[2022-03-17] MEDS: Ketorolac Tromethamine 30 MG/ML VIAL IVP PRN ×2 (04:16→10:21)
[2022-03-17 04:30] LABS: #Eosinphils 0.1 thou/uL (0.0-0.7); #Monocytes 0.7 thou/uL (0.11-0.59); #Neutrophils 6.4 thou/uL (1.40-6.50); %Basophils 0.2 % (0.0-1.0); %Eosinophils 1.1 % (0.0-10.0); %Lymphocytes 12.1 % (21.0-51.0); %Neutrophils 77.7 % (42.0-75.0); Mean Corpuscular HGB CONC 32.5 g/dL (32.0-36.0); Mean Corpuscular Hemoglobin 30.5 pg (27.0-31.0); Mean Corpuscular Volume 93.8 fL (78.0-98.0); Mean Platelet Volume 6.9 fL (7.4-10.4); Platelet Count 176 thou/uL (130-400); RBC Distribution Width 13.4 % (11.5-14.5); Red Blood Cell (RBC) Count 3.61 mill/uL (4.20-5.40); White Blood Cell (WBC) Count 8.2 thou/uL (4.8-10.8)
[2022-03-17 05:01] LABS: Anion Gap 13 mmol/L (10-20); BUN (Urea Nitrogen) 26 mg/dL (9.8-20.1); Calc. Creatinine Clearance 51 mL/min (70-130); Calcium 8.8 mg/dL (7.8-10.44); Carbon Dioxide 23 mmol/L (23-31); Chloride 106 mmol/L (98-107); Estimated GFR 43; Glucose 90 mg/dL (83-110); Potassium 4.1 mmol/L (3.5-5.1); Sodium 138 mmol/L (136-145)
[2022-03-17] MEDS ORDERED: hydrALAZINE 10 MG TAB PO SCH (09:00)
[2022-03-17] MEDS ORDERED: Losartan 25 MG TAB PO SCH (09:00)
[2022-03-17] MEDS ORDERED: Pantoprazole 40 MG VIAL IVP SCH (09:00)
[2022-03-17] MEDS ORDERED: Aspirin Chewable 81 MG TAB PO SCH (09:00)
[2022-03-17 11:25] VITALS: BP 128/76; TEMP 98.3
[2022-03-17] MEDS ORDERED: Colchicine 0.6 MG TAB PO SCH (21:00)
[2022-03-17] MEDS ORDERED: Atorvastatin Calcium 40 MG TAB PO SCH (21:00)
[2022-03-17] MEDS ORDERED: Ubidecarenone 50 MG CAP PO SCH (21:00)
== END 2022-03-17 13:41 | disposition home or self-care (01) ==
LOC: 2NO 18:41
PROVIDERS: ADMIT Internal Medicine; ATTEND Internal Medicine
DX: R07.89 Other chest pain (principal); R51.9 Headache, unspecified; I48.91 Unspecified atrial fibrillation; M19.90 Unspecified osteoarthritis, unspecified site; G47.33 Obstructive sleep apnea (adult) (pediatric); E78.00 Pure hypercholesterolemia, unspecified; I11.0 Hypertensive heart disease with heart failure; I50.9 Heart failure, unspecified; I34.0 Nonrheumatic mitral (valve) insufficiency; E66.9 Obesity, unspecified; Z68.30 Body mass index [BMI] 30.0-30.9, adult; Z86.73 Personal history of transient ischemic attack (TIA), and cerebral infarction without residual deficits; Z79.01 Long term (current) use of anticoagulants; Z79.899 Other long term (current) drug therapy; Z88.8 Allergy status to other drugs, medicaments and biological substances; Z91.048 Other nonmedicinal substance allergy status
CPT/HCPCS: 36415; 80048; 84484; 85025; 86140; 96374; 96375; 96376; C9113; G0378; J1885

== ENCOUNTER 2022-03-29 14:57 | Emergency (ER) | payer MEDICARE ==
[2022-03-29] MEDS ORDERED: Midazolam HCl 2 mg/2 ml Vial ONE (17:58)
[2022-03-29] MEDS ORDERED: Morphine 4 MG/ML VIAL ONE (17:58)
[2022-03-29 18:40] LABS: #Eosinphils 0.1 thou/uL (0.0-0.7); #Lymphocytes 0.8 thou/uL (1.20-3.40); #Monocytes 0.7 thou/uL (0.11-0.59); #Neutrophils 7.7 thou/uL (1.40-6.50); %Basophils 0.1 % (0.0-1.0); %Eosinophils 1.4 % (0.0-10.0); %Lymphocytes 8.7 % (21.0-51.0); %Neutrophils 82.9 % (42.0-75.0); Hemoglobin 9.6 g/dL (12.0-16.0); Mean Corpuscular HGB CONC 31.4 g/dL (32.0-36.0); Mean Corpuscular Hemoglobin 29.5 pg (27.0-31.0); Mean Platelet Volume 6.4 fL (7.4-10.4); Platelet Count 456 thou/uL (130-400); Red Blood Cell (RBC) Count 3.24 mill/uL (4.20-5.40); White Blood Cell (WBC) Count 9.3 thou/uL (4.8-10.8)
[2022-03-29] MEDS ORDERED: Dexamethasone 10 MG/ML VIAL ONE (18:59)
[2022-03-29 19:03] LABS: ALT (SGPT) 14 U/L (8-55); AST (SGOT) 19 U/L (5-34); Alkaline Phosphatase 148 U/L (40-110); Anion Gap 14 mmol/L (10-20); BUN (Urea Nitrogen) 52 mg/dL (9.8-20.1); Bilirubin, Total 0.7 mg/dL (0.2-1.2); Calc. Creatinine Clearance 0 mL/min (70-130); Calcium 8.3 mg/dL (7.8-10.44); Carbon Dioxide 22 mmol/L (23-31); Chloride 107 mmol/L (98-107); Estimated GFR 25; Globulin 2.8 g/dL (2.4-3.5); Glucose 122 mg/dL (83-110); Lipase 32 U/L (8-78); Potassium 4.7 mmol/L (3.5-5.1); Protein, Total 5.8 g/dL (5.8-8.1); Sodium 138 mmol/L (136-145)
== END 2022-03-29 20:29 | disposition home or self-care (01) ==
LOC: ERS 14:57
DX: I31.9 Disease of pericardium, unspecified (principal); R09.1 Pleurisy; I10 Essential (primary) hypertension; E78.00 Pure hypercholesterolemia, unspecified; I48.91 Unspecified atrial fibrillation; M06.9 Rheumatoid arthritis, unspecified; Z79.899 Other long term (current) drug therapy
CPT/HCPCS: 71045; 80053; 83690; 84484; 85025; 93005; 96374; 96375; J1100; J2250; J2270

== ENCOUNTER 2022-03-31 10:18 | Outpatient (CLI) | payer MEDICARE | END 2022-03-31 10:19 | disposition home or self-care (01) | LOC: BICRAD 10:18 | PROVIDERS: ATTEND Physician Assistant | DX: M25.572 Pain in left ankle and joints of left foot (principal) ==

== ENCOUNTER 2022-12-29 14:20 | Outpatient (CLI) | payer MEDICARE | END 2022-12-29 14:21 | disposition home or self-care (01) | LOC: SCSRAD 14:20 | PROVIDERS: ATTEND Internal Medicine | DX: R07.89 Other chest pain (principal) | CPT/HCPCS: 71046 ==

== ENCOUNTER 2024-08-18 23:00 | Inpatient (IN) | payer MEDICARE ==
[2024-08-19 01:28] VITALS: BMI 29.5
[2024-08-19] MEDS ORDERED: Acetaminophen 650 MG Suppository PR PRN (02:09)
[2024-08-19] MEDS ORDERED: Ondansetron PF 4 MG/2 ML Vial IVP PRN (02:09)
[2024-08-19] MEDS ORDERED: Ondansetron ODT 4 MG TAB PO PRN (02:09)
[2024-08-19] MEDS ORDERED: Calcium Carbonate 500 MG ChewTAB PO PRN (02:09)
[2024-08-19 03:29] LABS: #Basophils 0.04 10x3/uL (0.0-0.2); %Basophils 0.6 % (0.0-1.0); %Eosinophils 5.8 % (0.0-10.0); %Lymphocytes 43.7 % (21.0-51.0); %Monocytes 10.1 % (0.0-10.0); %Neutrophils 39.6 % (42.0-75.0); Hematocrit 32.6 % (36.0-47.0); Hemoglobin 10.3 g/dL (12.0-16.0); Mean Corpuscular HGB CONC 31.6 g/dL (32.0-36.0); Mean Platelet Volume 9.2 fL (7.4-10.4); Platelet Count 197 10x3/uL (130-400); RBC Distribution Width 14.2 % (11.5-14.5); Red Blood Cell (RBC) Count 3.43 mill/uL (4.20-5.40)
[2024-08-19] MEDS: Lidocaine 2% Viscous Solution 10 ML, Aluminum & Magnesium Hydroxide 30 ML SSW SCH (03:37)
[2024-08-19 03:49] LABS: Troponin I 0.028 ng/mL (< 0.028)
[2024-08-19 03:53] LABS: Anion Gap 11 mmol/L (10-20); BUN (Urea Nitrogen) 27 mg/dL (9.8-20.1); Calc. Creatinine Clearance 47 mL/min (70-130); Calcium 8.4 mg/dL (7.8-10.44); Carbon Dioxide 22 mmol/L (23-31); Chloride 111 mmol/L (98-107); Estimated GFR 41; Glucose 86 mg/dL (83-110); Sodium 140 mmol/L (136-145)
[2024-08-19] MEDS: Acetaminophen 325 MG TAB PO SCH (06:10)
[2024-08-19] MEDS: Escitalopram Oxalate 20 mg Tablet PO SCH (07:53)
[2024-08-19] MEDS: Famotidine 20 MG TAB PO SCH (07:53)
[2024-08-19] MEDS: Valsartan 80 MG TAB PO SCH (07:53)
[2024-08-19] MEDS: Aspirin Chewable 81 MG TAB PO SCH (07:53)
[2024-08-19] MEDS: Famotidine/PF 20 mg/2ml Vial SLOW IVP SCH (07:54)
[2024-08-19] MEDS ORDERED: ALPRAZolam 0.25 MG TAB PO PRN (11:43)
[2024-08-19] MEDS: Hydrochlorothiazide 25 MG TAB PO SCH ×2 (11:48→11:49)
[2024-08-19] MEDS: Nitroglycerin 2% Ointment 1 INCH/1 GM Packet TOP SCH (14:16)
[2024-08-19] MEDS: hydrALAZINE 25 MG TAB PO SCH (14:16)
[2024-08-19] MEDS: Atorvastatin Calcium 40 MG TAB PO SCH (21:32)
[2024-08-20] MEDS: Ketorolac Tromethamine 30 MG (1 mL) VIAL IVP SCH (00:41)
[2024-08-20] MEDS: diphenhydrAMINE 50 MG/ML VIAL IVP SCH (00:41)
[2024-08-20 08:09] VITALS: BP 129/71; TEMP 98.4
[2024-08-22] MEDS ORDERED: FLU (Fluad Triv) TS24-25 (65UP)/MF59C/PF 45 MCG/0.5 ML Syringe IM ONE (09:00)
== END 2024-08-20 12:25 | disposition home or self-care (01) | DRG 313 ==
LOC: OBS 08-19 00:55 → OBSVTOIN 08-19 11:41
PROVIDERS: ADMIT Student in an Organized Health Care Education/Training Program; ATTEND Internal Medicine
DX: R07.89 Other chest pain (principal); I48.0 Paroxysmal atrial fibrillation; I10 Essential (primary) hypertension; M06.9 Rheumatoid arthritis, unspecified; E78.5 Hyperlipidemia, unspecified; Z79.899 Other long term (current) drug therapy; Z91.048 Other nonmedicinal substance allergy status; Z88.8 Allergy status to other drugs, medicaments and biological substances; Z90.710 Acquired absence of both cervix and uterus; Z90.89 Acquired absence of other organs; Z98.890 Other specified postprocedural states; Z79.82 Long term (current) use of aspirin
CPT/HCPCS: 36415; 71045; 80048; 84484; 85025; 93005; 94760; G0378; J1200; J1885